=== PATIENT | male | born 1980 | race Caucasian/White ===

== ENCOUNTER 2024-04-26 08:49 | Emergency (ER) | payer OTHER, SELFPAY ==
--- NOTE | 2024-04-26 08:54 | ED_ITS ---
HPI - URI/Sore Throat General Chief Complaint: Upper Respiratory Infection Stated Complaint: family has flu Time Seen by Provider: 04/26/24 09:08 Source: patient and RN notes reviewed Mode of arrival: ambulatory Limitations: no limitations History of Present Illness HPI Narrative: 43-year-old male presents to the [facility] with vague symptoms of cough, congestion that started on Thursday or Thursday. Reports that he was exposed to influenza. Reports he took an ibuprofen and 1 Sudafed today. Related Data Home Medications ?Medication ?Instructions ?Recorded ?Confirmed ?Last Taken ?Type No Home Medications 04/26/24 04/26/24 Unknown History Allergies Allergy/AdvReac Type Severity Reaction Status Date / Time No Known Allergies Allergy Verified 04/26/24 09:10 Review of Systems Review of Systems: All systems reviewed & are unremarkable except as noted in HPI and below Constitutional: Constitutional: Reports as per HPI, Reports body ache(s) and Reports fatigue ENT: Reports system reviewed and no additional complaints, except as documented Cardiovascular: Cardiovascular: Reports no additional cardiovascular complaints, Denies chest pain and Denies dyspnea Respiratory: Respiratory: Reports as per HPI, Denies chest congestion, Reports cough and Denies dyspnea Musculoskeletal: Musculoskeletal: Reports no additional musculoskeletal complaints Integumentary/Breasts: Skin/Breast: Reports system reviewed and no additional complaints, except as docu PMFSH Comments At the time of my signature, I reviewed and agree with the nursing past medical, surgical, social, and family history. There is no relevant family history pertinent to the patient complaint. Exam Const: General: cooperative, healthy appearing, comfortable, no acute distress, well developed, alert and well nourished Nutritional Appearance: well nourished Orientation/consciousness: patient oriented x3 Limitations: no limitations HENMT: Head: normal to inspection Ears: hearing grossly normal bilaterally, external ears normal, TM's normal bilaterally, mastoids normal, no periauricular adenopathy and Abnormal EAC present Mouth: Yes Normal oral and palatal mucosa present, Yes lip normal, Yes tongue normal and Yes moist mucous membranes Throat: posterior oropharynx normal, uvula midline and no uvular edema Eyes: General: appearance normal, both eyes and all related structures Alignment and Position: alignment normal Neck: Neck: normal visual inspection, full ROM, no lymphadenopathy and no meningeal signs Chest: Chest palpation & inspection: normal inspection of the chest Resp: Effort & Inspection: normal respiratory effort and able to speak in complete sentences Auscultation: clear to auscultation bilaterally, no crackles, no rales, no rhonchi and no wheezes Cardio: Rate: regular rate Skin: General skin exam: normal color and no rashes or lesions noted Neuro: General: patient oriented x3, gait normal, moves all extremities and no meningeal signs Cognition (Neuro): normal cognition Speech: normal speech Gait exam (Neuro): Normal gait present Extrem: General: normal to inspection, full ROM, capillary refill normal and normal gait Psych: Appearance: grossly normal and well kempt Mental Status: mental status grossly normal Speech and movement: Normal speech and movement present and Clear speech present Affect: normal affect Attitude: cooperative Course Course Level of Care: Express Care Visit Vital Signs Vital signs: Vital Signs Temperature 98.1 F 04/26/24 09:00 Pulse Rate 84 04/26/24 09:00 Respiratory Rate 20 04/26/24 09:00 Blood Pressure 135/81 04/26/24 09:00 Pulse Oximetry 98 04/26/24 09:00 Oxygen Delivery Room Air 04/26/24 09:00 Temperature 98.1 F 04/26/24 09:00 Pulse Rate 84 04/26/24 09:00 Respiratory Rate 20 04/26/24 09:00 Blood Pressure 135/81 04/26/24 09:00 Pulse Oximetry 98 04/26/24 09:00 Oxygen Delivery Room Air 04/26/24 09:00 Reviewed MDM - URI/Sore Throat MDM Narrative Medical decision making narrative: Patient sitting in exam room. Nontoxic, vitals stable. Patient in no acute distress. Patient presents with concerns for influenza Test is negative, may tested too soon if symptoms started yesterday. Had been exposed to influenza. No acute findings noted on exam. Discharge instructions reviewed with patient, as well as provided in writing per nursing staff. The instructions also include specific and strict return/GO TO THE ER as well as f/u information. All questions have been answered, and the patient deny any further questions w ith discharge and discharge plan. Some parts of this dictation were generated by voice recognition software and may contain typographical and/or grammatical inaccuracies. Differential Diagnosis Differential diagnosis: Likely upper respiratory infection, sinusitis, viral infection, bronchitis, influenza and pharyngitis Lab Data Labs: Lab Results 04/26/24 Range/Units 09:00 POC Influenza A Ag Negative (Negative) POC Influenza B Ag Negative (Negative) POC SARS CoV-2 Ag Negative (Negative) Review Critical Care Time Critical Care Time Critical Care Time: No Discharge Plan Discharge Clinical Impression: Influenza-like illness Patient Disposition: Home, Self-Care Condition: Stable Instructions: Antibiotic Form, Influenza (DC) Additional Instructions: Your symptoms are likely due to a viral illness, which is not treated with antibiotics. Typically viral infections last 7-10 days, can linger for couple of weeks. It is very important to treat your symptoms. Drink plenty of water, Gatorade, Pedialyte, ice pops or Jell-O. -Alternate Tylenol and Motrin per package directions for fever or pain. You can alternate every 4 hours -Antihistamine medication such as Zyrtec/Claritin/Hermila during the day can help improve symptoms. -doing daily nasal irrigations can help relieve pressure your sinuses. Things like a Neti pot -Use Flonase twice a day for 5 days then daily to help reduce the inflammation and dry up your sinuses. -You can also use Mucinex. Be sure to drink plenty of water with this medication at least 8 ounces with every dose and it is important to drink 8 to 10 glasses of water per day. Water is a natural decongestant -Eat and drink things that are easy to swallow, like tea or soup, or popsicles. -Oral rinses such as: Salt water gargles and/or may use topical anesthetic (eg. Chloraseptic spray) or lozenges to relieve dryness or throat pain). -Frequent hand washing or hand cotton cleaner is one of the best ways to prevent spread of infection. -Using a vaporizer or humidifier at night will also help thin secretions and help with coughing up phlegm. -Follow up with primary care provider in 7-10 days if condition is not improving - For new or worsening symptoms go directly to the nearest ER Patient Language: [place] Prescriptions: No Action No Home Medications Follow-up/Referrals: PHYSICIAN NOT ON STAFF,NONSTAFF [Primary Care Provider] - Stand Alone Forms: Work/School Release IP Time of Disposition: 09:23
--- OUTSIDE RECORDS SUMMARY | 2024-04-26 08:58 | XMS_ITS | Patient Health Record ---
Author Organization [facility] Address [address] [address] Care Team Providers Care Pool Cleaner Name Role Phone Umair Chowdhury Primary Care Provider [phone] Allergies No Known Allergies Results Component Value Reference Range Notes LIPID PANEL (Not yet reviewe d by provider) Interpretation: Performing Lab:[facility] [place] [id number] Administration Josue Jordan [id number] KirstenGurwinder [facility] Notes/Report: FASTING:YES FASTING: YES CHOLESTEROL, TOTAL 137 <200 mg/dL HDL CHOLESTEROL 41 > OR = 40 mg/dL TRIGLYCERIDES 57 <150 mg/dL LDL-CHOLESTEROL 83 Reference range: <100 Desirable range <100 mg/dL for primary prevention; <70 mg/dL for patients with CHD or diabetic patients with > or = 2 CHD risk factors. LDL-C is now calculated using the Gt-Kelsy calculation, which is a validated novel method providing better accuracy than the Friedewald equation in the estimation of LDL-C. Gt WAGGONER et al. JUANI. 2013;310(19): 4289-5710 (http://education.Comviva.GogoCoin/faq/TJG212) CHOL/HDLC RATIO 3.3 <5.0 (calc) NON HDL CHOLESTEROL 96 <130 mg/dL (calc) For patients with diabetes plus 1 major ASCVD risk factor, treating to a non-HDL-C goal of <100 mg/dL (LDL-C of <70 mg/dL) is considered a therapeutic option. COMPREHENSIVE METABOLIC PANE L (Not yet reviewed by provider) Interpretation: Performing Lab:[facility] [place] [id number] Administration Josue Jordan [address] Notes/Report: FASTING:YES FASTING: YES GLUCOSE 93 65-99 mg/dL Fasting reference interval UREA NITROGEN (BUN) 15 7-25 mg/dL CREATININE 1.10 0.60-1.29 mg/dL EGFR 87 > OR = 60 mL/min/1.73m2 BUN/CREATININE RATIO SEE NOTE: 6-22 (calc) Not Reported: BUN and Creatinine are within reference range. SODIUM 136 135-146 mmol/L POTASSIUM 4.1 3.5-5.3 mmol/L CHLORIDE 103 98-110 mmol/L CARBON DIOXIDE 28 20-32 mmol/L CALCIUM 9.2 8.6-10.3 mg/dL PROTEIN, TOTAL 6.6 6.1-8.1 g/dL ALBUMIN 4.4 3.6-5.1 g/dL GLOBULIN 2.2 1.9-3.7 g/dL (calc) ALBUMIN/GLOBULIN RATIO 2.0 1.0-2.5 (calc) BILIRUBIN, TOTAL 0.5 0.2-1.2 mg/dL ALKALINE PHOSPHATASE 13 36-130 U/L AST 21 10-40 U/L ALT 14 9-46 U/L URIC ACID (Not yet reviewed by provider) Interpretation: Performing Lab:[facility]IL[facility] [employer] [place] [address] Administration Josue Jordan [address] Notes/Report: FASTING:YES FASTING: YES URIC ACID 5.1 4.0-8.0 mg/dL Therapeutic ta rget for gout patients: <6.0 mg/dL CBC (INCLUDES DIFF/PLT) (Not yet reviewed by provider) Interpretation: Performing Lab:[facility]IL[facility] [employer] [place] [address] Administration Josue Jordan [address] Notes/Report: FASTING:YES FASTING: YES WHITE BLOOD CELL COUNT 6.5 3.8-10.8 Thousand/ uL RED BLOOD CELL COUNT 5.21 4.20-5.80 Million/uL HEMOGLOBIN 15.5 13.2-17.1 g/dL HEMATOCRIT 47.4 38.5-50.0 % MCV 91.0 80.0-100.0 fL MCH 29.8 27.0-33.0 pg MCHC 32.7 32.0-36.0 g/dL RDW 12.4 11.0-15.0 % PLATELET COUNT 257 140-400 Thousand/uL MPV 10.3 7.5-12.5 fL ABSOLUTE NEUTROPHILS 3653 8235-2441 cells/uL ABSOLUTE LYMPHOCYTES 8752 206-5923 cells/uL ABSOLUTE MONOCYTES 702 200-950 cells/uL ABSOLUTE EOSINOPHILS 143 15-500 cells/uL ABSOLUTE BASOPHILS 39 0-200 cells/uL NEUTROPHILS 56.2 LYMPHOCYTES 30.2 MONOCYTES 10.8 EOSINOPHILS 2.2 BASOPHILS 0.6 URINALYSIS, COMPLETE W/REFLE X TO CULTURE (Not yet reviewed by provider) Interpretation: Performing Lab:AB[facility]IL[facility] [employer] [place] [address] Administration Josue Jordan [id number] [facility] Notes/Report: FASTING:YES FASTING: YES COLOR YELLOW YELLOW APPEARANCE CLEAR CLEAR SPECIFIC GRAVITY 1.022 1.001-1.035 PH 6.0 5.0-8.0 GLUCOSE NEGATIVE NEGATIVE BILIRUBIN NEGATIVE NEGATIVE KETONES NEGATIVE NEGATIVE OCCULT BLOOD NEGATIVE NEGATIVE PROTEIN NEGATIVE NEGATIVE NITRITE NEGATIVE NEGATIVE LEUKOCYTE ESTERASE NEGATIVE NEGATIVE WBC NONE SEEN < OR = 5 /HPF RBC NONE SEEN < OR = 2 /HPF SQUAMOUS EPITHELIAL CELLS NONE SEEN < OR = 5 /HPF BACTERIA NONE SEEN NONE SEEN /HPF HYALINE CAST NONE SEEN NONE SEEN /LPF NOTE This urine was analyzed for the presence of WBC, RBC, bacteria, casts, and other formed elements. Only those elements seen were reported. SED RATE BY MODIFIED AARON ANTONIO (Not yet reviewed by provider) Interpretation: Performing Lab:[facility]IL[facility] [employer] [place] [address] Administration Josue Jordan [id number] [facility] Notes/Report: FASTING:YES FASTING: YES SED RATE BY MODIFIED AARONREN 2 < OR = 15 mm/h HEMOGLOBIN A1c (Not yet revi ewed by provider) Interpretation: Performing Lab:[facility] [employer] [place] [address] Administration Josue Jordan [id number] [facility] Notes/Report: FASTING:YES FASTING: YES HEMOGLOBIN A1c 5.7 <5.7 % of total Hgb prediabetes and should be confirmed with a follow-up test. For someone with known diabetes, a value <7% indicates that their diabetes is well controlled. A1c targets should be individualized based on duration of diabetes, age, comorbid conditions, and other considerations. This assay result is consistent with an increased risk of diabetes. Currently, no consensus exists regarding use of hemoglobin A1c for diagnosis of diabetes for children. This test was performed on the Jeny fabien c503 platform. Effective 05/25/23, a change in test platforms from the [facility] [employer] to the Jeny fabien c503 may have shifted HbA1c results compared to historical results. Based on laboratory validation testing conducted at [facility], the Jeny platform relative to the [employer] platform had an average increase in HbA1c value of < or = 0.3%. This difference is within accepted variability established by the National Glycohemoglobin Standardization Program. Note that not all individuals will have had a shift in their results and direct comparisons between historical and current results for testing conducted on different platforms is not recommended. For someone without known diabetes, a hemoglobin A1c value between 5.7% and 6.4% is consistent with T4, FREE (Not yet reviewed b y provider) Interpretation: Performing Lab:[facility]IC[facility] [employer] [facility]-[id number] [place] [id number] Prema Squires MD Notes/Report: FASTING:YES FASTING: YES T4, FREE 1.1 0.8-1.8 ng/dL TSH (Not yet reviewed by pro vider) Interpretation: Performing Lab:[facility]IL[facility] [employer] [place] [address] Administration Josue Jordan [address] Camilla Squires Notes/Report: FASTING:YES FASTING: YES TSH 1.01 0.40-4.50 mIU/L T3, FREE (Not yet reviewed b y provider) Interpretation: Performing Lab:[facility] [employer] Limited-[id number] Chase [id number] Prema Squires MD Notes/Report: FASTING:YES FASTING: YES T3, FREE 3.4 2.3-4.2 pg/mL REFLEXIVE URINE CULTURE (Not yet reviewed by provider) Interpretation: Performing Lab:[facility] [employer] [place] [address] Administration Josue Jordan [address] Camilla Squires Notes/Report: FASTING:YES FASTING: YES REFLEXIVE URINE CULTURE NO C ULTURE INDICATED Reason For Referral No Information Medications Medication SIG (Take, Route, Fr equency, Duration) Notes Start Date End Date Status traMADol HCl 50 MG 1 tablet Orally Every 8 Hours for 17 days As needed 10/13/2023 Active Ibuprofen 200 MG 2-4 tablet with [...] Problem Status W/U Status Risk Notes Problem 94129983 Other chronic pa in (G89.29) Active confirmed Problem 468341966 Gastroesophageal reflux disease without esophagitis (K21.9) Active confirmed Problem 509188950657393 Right hand pain (M79.641) Active confirmed Problem 798190589925732 Left hand pain (M79.642) Active confirmed Problem 407903435768131 Left wrist pain (M25.532) Active confirmed Problem 156900105 Lumbar spondylos is (M47.816) Active confirmed Problem 808782453 Tobacco use disorder (F17.200) Active confirmed Problem 784838265192534 Right wrist pain (M25.531) Active confirmed Problem 666985038 Low back pain, unspecified (M54.50) Active confirmed Problem 69228510305258164 Injury of left forearm, sequela (S59.912S) Active confirmed Problem 00918828211577877 Right wrist tendonitis (M77.8) Active confirmed Problem 45970622488682474 Left wrist tendonitis (M77.8) Active confirmed Vital Signs Heart Rate 67 /min 10/13/2023 ple Temperature 98.6 degrees Fahrenheit 10/13/2023 ple Respiratory Rate 16 /min 10/13/2023 ple Oximetry 96 % 10/13/2023 ple Blood pressure diastolic 84 mm Hg 10/13/2023 ple Height 77 in 10/13/2023 ple Blood pressure systolic 122 mm Hg 10/13/2023 ple Weight 209 lbs 10/13/2023 ple BMI 24.78 kg/m2 10/13/2023 ple Encounters Encounter Location Date Provider Diagnosis [facility] [address] [address] 09/01/2023 Umair Chowdhury Low back pain, unspecified M54.50 ; Right hand pain M79.641 ; Right wrist pain M25.531 ; Left hand pain M79.642 ; Left wrist pain M25.532 ; Gastroesophageal reflux disease without esophagitis K21.9 ; Tobacco use disorder F17.200 and Other chronic pain G89.29 [facility] [address] [address] 09/15/2023 Umair Chowdhury Low back pain, unspecified M54.50 ; Gastroesophageal reflux disease without esophagitis K21.9 ; Tobacco use disorder F17.200 ; Injury of left forearm, sequela S59.912S ; Right wrist tendonitis M77.8 and Left wrist tendonitis M77.8 [facility] [address] [address] 10/13/2023 Umair Chowdhury Gastroesophageal ref lux disease without esophagitis K21.9 ; Tobacco use disorder F17.200 ; Low back pain, unspecified M54.50 ; Lumbar spondylosis M47.816 and Other chronic pain G89.29 [facility] [address] [address] 10/13/2023 Umair Chowdhury Low back pain, unspecified M54.50 Assessments Encounter Date Diagnosis (ICD Code) Assessment Notes Treatment Notes Treatment Clinical Notes Section Notes 09/01/2023 Right hand pain (ICD-10 - M79.641) 09/01/2023 Low back pain, unspecified (ICD-10 - M54.50) Back Pain: Care Instructions material was published to portal 09/15/2023 Low back pain, unspecified (ICD-10 - M54.50) 10/13/2023 Gastroesophageal reflux disease without esophagitis (ICD-10 - K21.9) 10/13/2023 Tobacco use disorder (ICD-10 - F17.200) Quitting Tobacco: Care Instructions material was published 10/13/2023 Low back pain, unspecified (ICD-10 - M54.50) 10/13/2023 Low back pain, unspecified (ICD-10 - M54.50) 09/01/2023 Right wrist pain (ICD-10 - M25.531) 09/15/2023 Gastroesophageal reflux disease without esophagitis (ICD-10 - K21.9) Gastroesophageal Reflux Disease (GERD): Care Instructions material was published 09/15/2023 Tobacco use disorder (ICD-10 - F17.200) 09/01/2023 Left hand pain (ICD-10 - M79.642) 10/13/2023 Lumbar spondylosis (ICD-10 - M47.816) 10/13/2023 Other chronic pain (ICD-10 - G89.29) 09/15/2023 Injury of left forearm, sequela (ICD-10 - S59.912S) 09/01/2023 Left wrist pain (ICD-10 - M25.532) 09/01/2023 Gastroesophageal reflux disease without esophagitis (ICD-10 - K21.9) 09/15/2023 Right wrist tendonitis (ICD-10 - M77.8) 09/15/2023 Left wrist tendonitis (ICD-10 - M77.8) 09/01/2023 Tobacco use disorder (ICD-10 - F17.200) 09/01/2023 Other chronic pain (ICD-10 - G89.29) Plan Of Treatment Pending Test Test Name Order Date LIPID PANEL 09/09/2023 COMPREHENSIVE METABOLIC PANEL 09/09/2023 URIC ACID 09/09/2023 CBC (INCLUDES DIFF/PLT) 09/09/2023 URINALYSIS, COMPLETE W/REFLEX TO CULTURE 09/09/2023 SED RATE BY BEENA SANDHU 09/09/19 24 HEMOGLOBIN A1c 09/09/2023 T4, FREE 09/09/2023 TSH 09/09/2023 T3, FREE 09/09/2023 REFLEXIVE URINE CULTURE 09/09/2023 Insurance Providers Payer Name Payer Address Payer Phone Subscriber Number Group Number Insured Name Patient Relationship to Insured Coverage Start Date Coverage End Date [employer] [facility] [address] [place] [address] [id number] BILL PABON Self - patient is the insured 4 Medical (General) History Surgical History Surgery Date(Month/Year)
--- OUTSIDE RECORDS SUMMARY | 2024-04-26 08:58 | XMS_ITS | Clinical Summary ---
Author Organization [facility] Care Team Providers Care Straightening Machine Feeder Name Role Phone Unavailable Primary Care Provider Unavailabl e Social History Tobacco Use Types Packs/Day Years Used Date Smoking Tobacco: Never Assessed Sex and Gender Information Value Date Recorded Sex Assigned at Not on file Legal Sex Male 12:46 PM ART HISTORIAN Gender Identity Not on file Sexual Orientation Not on file Plan of Treatment Health Maintenance Due Date Last Done Comments Hepatitis C Virus (HCV) Screening 1982 TdaP Immunization 1982 Hepatitis B Immunization (1 of 3 - 19+ 3-dose series) 2001 Influenza Immunization (#1) 2023 SARS-COV-2 Immunization ( - 2023- season) 2023 Respiratory Syncytial Virus (RSV) Immunization (Adult) (1 - 1-dose 75+ series) 2057 Meningococcal Immunization (ACWY) Aged Out No longer eligible based on patient's age to complete this topic Pneumococcal Immunization Combined Aged Out No longer eligible based on patient's age to complete this topic Rotavirus Immunization Aged Out No lo nger eligible based on patient's age to complete this topic
--- OUTSIDE RECORDS SUMMARY | 2024-04-26 08:58 | XMS_ITS ---
Author Organization [facility] Address [address] [address] Care Team Providers Care River Boat Captain Name Role Phone Umair Chowdhury Primary Care Provider [phone] Allergies No Known Allergies REASON FOR VISIT F/U Back pain - Pt requesting something for pain (Narcotics make pt nauseous) Medications Medication SIG (Take, Route, Fr equency, Duration) Notes Start Date End Date Status traMADol HCl 50 MG 1 tablet as needed O rally Once a day 10/13/2023 Active Ibuprofen 200 MG 2-4 tablet [...] Problem Status W/U Status Risk Notes Problem [id number] Lumbar spondylosis (M47.816) Active confirmed Vital Signs Temperature 98.6 degrees Fahrenheit 10/13/19 24 Blood pressure systolic 122 mm Hg 10/13/19 24 Blood pressure diastolic 84 mm Hg 024 Heart Rate 67 /min 10/13/2023 Respiratory Rate 16 /min 10/13/2023 Height 77 in 10/13/2023 Weight 209 lbs 10/13/2023 BMI 24.78 kg/m2 10/13/2023 Oximetry 96 % 10/13/2023 ple Encounters Encounter Location Date Provider Diagnosis [place] [address] [facility] [place] [address] 10/13/2023 Umair Chowdhury Gastroesophageal ref lux disease without esophagitis K21.9 ; Tobacco use disorder F17.200 ; Low back pain, unspecified M54.50 ; Lumbar spondylosis M47.816 and Other chronic pain G89.29 Assessments Encounter Date Diagnosis (ICD Code) Assessment Notes Treatment Notes Treatment Clinical Notes Section Notes 10/13/2023 Gastroesophageal reflux disease without esophagitis (ICD-10 - K21.9) 10/13/2023 Tobacco use disorder (ICD-10 - F17.200) Quitting Tobacco: Care Instructions material was published 10/13/2023 Low back pain, unspecified (ICD-10 - M54.50) 10/13/2023 Lumbar spondylosis (ICD-10 - M47.816) 10/13/2023 Other chronic pain (ICD-10 - G89.29) Plan Of Treatment Medication Medication Name Sig Start Date Stop Date Notes traMADol HCl 50 MG 1 tablet as needed Orally Once a day Treatment Notes Assessment Notes Tobacco use disorder Quitting Tobacco: C are Instructions material was published Progress Notes * BILL PABONDOB:[birth year] (43 yo M)Acc No.[id number]:10/13/2023 Progress Notes Patient: BILL MCCALLUM Provider: Ivett Chowdhury M.D. :1980 A ge:42 Y S ex:Male Date:10/13/2023 Address:[address] [place] [address] [address], [place] Subjective: * Chief Complaints: * 1 . F/U Back pain - Pt requesting something for pain (Narcotics make pt nauseous). * ROS: C onstitutional: No C onstit. [...] omiting . D enies D ysphagia . D enies R eflux/heartburn . D enies C hange [...] enies V aginal discharge . M usculoskeletal: Admits B ack pain . D enies J oint pain . D enies J oint swelling . D enies L imited range of motion . D enies M uscle aches.?Denies M uscle weakness . D enies S [...] leep disturbance . D enies S adness/tearfulness. H ematologic/lymphatic: No H em/Lymph Complaints . D enies B ruising . D enies B leeding tendencies . D enies L ymphadenopathy . D enies R ecurrent infections . A llergic/immunologic: No A ll/Imm Complaints . D enies E czema. D enies S easonal allergies . D enies U rticaria . E ndocrine: No E ndocrine Complaints . D enies P olydipsia .?Denies P olyphagia . D enies P olyuria . * Medical History: M edical History Verified. * Family History: F ather: unknown. M [...] as needed Orally every 6 hrs , Discontinued Acetaminophen 325 MG Tablet 2 tablet as needed Orally every 6 hrs , Medication List reviewed and reconciled with the patient * Allergies: N .K.D.A. Objective: * Vitals: T emp:98.6F, HR:67/min, BP:122/84mm Hg, Wt:209lbs, BMI:24.78Index, Ht: 77 in, RR:16/min, Oxygen sat %:96%, Peak Flow: RA, Ht-cm: 195.58 cm, Wt-k.8 kg. ple. * Examination: G eneral Examination: FUNCTIONAL [...] oriented x 3. Assessment: * Assessment: 1. G astroesophageal reflux disease without esophagitis - K21.9 (Primary) 2 .?Tobacco use disorder - F17.200 3 . L ow back pain, unspecified - M54.50 4 . L umbar spondylosis - M47.816 5 . O ther chronic pain - G89.29 Plan: * Treatment: 2. L ow back pain, unspecified Start traMADol HCl Tablet, 50 MG, 1 tablet as needed, Orally, Once a day. * Preventive Medicine: Counseling: C are goal follow-up plan: A becca Normal BMI Follow-up G iving encouragement to exercise, Lifestyle education regarding diet. * * Electronic signature of Kaleb Chowdhury MD on 04/26/2024 at 09:58 AM EST Sign off status: Pending * Provider: Ivett Chowdhury M.D. Date: 0 10/13/2023 Generated for Anna dill/Brina/Mariana on: 0 04/26/2024 09:58 AM EST History and Physical Notes * Examination Category Sub-Category Detail Notes Category Not es General Examination GENERAL APPEARANCE: in no ac bishop distress, well developed, well nourished HEAD: normocephalic, [...]
--- OUTSIDE RECORDS SUMMARY | 2024-04-26 08:58 | XMS_ITS | Referral Summary ---
Author Organization [facility] Address [address] [address] [employer] [place] [address] Care Team Providers Care Blow Molding Machine Operator Name Role Phone Umair Chowdhury MD Primary Care Provider Encounters Date Type Department Care Team Description 03/23/2024 7:00 AM FLAT HAMMERER Office Visit [facility] Hand Surgery [address] [place] [phone] Amado Salguero MD Chronic pain of both wrists (Primary Dx); Ganglion cyst of dorsum of right wrist 02/16/2024 Telephone [facility] [address] [place] [phone] Amado Salguero MD Results - Rt Wrist 02/15/2024 7:17 PM FLAT HAMMERER - 02/15/2024 11:59 PM FLAT HAMMERER Hospital Encounter [place] [address] [place] [address] Right wrist pain Discharge Disposition: Discharge to home or self care 02/10/2024 7:30 AM FLAT HAMMERER Office Visit [facility] Hand Surgery [address] [place] [phone] Amado Salguero MD Chronic pain of both wrists (Primary Dx); Right wrist pain 01/25/2024 Telephone [facility] Orthopedics and Sports Medicine [address] [place] [phone] Amado Salguero MD MRI denied from Last 3 Months Allergies No known active allergies Medications traMADoL (ULTRAM) 50 mg tablet TAKE 1 TABLET BY MOUTH EVERY 8 HOURS FOR 17 DAYS NEEDED 10/13/2023 Active Active Problems Problem Noted Date Diagnosed Date Ganglion cyst of dorsum of right wrist 5 Chronic pain of both wrists 10/12/2023 Immunizations Immunization Administration Dates Next Due Influenza, Unspecified 01/08/2020(Deferred: Jeana ent Refused) Tdap 04/12/2020(Deferred: Patient Ref used) Social History Tobacco Use Types Packs/Day Years Used Date Smoking Tobacco: Every Day Cigarettes Tobacco Cessation:Ready to Q uit: Not Asked; Counseling Given: Not Answered Alcohol Use Standard Drinks/Week Comments Not Currently 0 (1 standard drink = 0.6 oz pur e alcohol) PHQ-2 Answer Date Recorded PHQ-2 Total Score (If total score is 3 or more points, staff should administer the PHQ-9) 0 04/12/2020 Sex and Gender Information Value Date Recorded Sex Assigned at Not on file Legal Sex Male 1:50 PM FLAT HAMMERER Gender Identity Male 02/29/2024 4:27 PM FLAT HAMMERER Sexual Orientation Straight 02/29/2024 4: 27 PM FLAT HAMMERER Last Filed Vital Signs Vital Sign Reading Time Taken Comments Blood Pressure 124/76 01/21/2023 1:48 PM FLAT HAMMERER Pulse 69 01/21/2023 1:48 PM FLAT HAMMERER Temperature 35.6 C (96.1 F) 04/12/2020 1:48 PM FLAT HAMMERER Respiratory Rate 18 04/12/2020 1:48 PM FLAT HAMMERER Oxygen Saturation 98% 04/12/2020 1:48 PM FLAT HAMMERER Inhaled Oxygen Concentration - - Weight 93.4 kg (206 lb) 01/21/2023 1:48 PM FLAT HAMMERER Height 193 cm (6' 4 ) 01/21/2023 1:48 PM FLAT HAMMERER Body Mass Index 25.08 01/21/2023 1:48 PM FLAT HAMMERER Plan of Treatment Not on file Procedures Procedure Name Priority Date/Time Associated Diagnosis Comments US UPPER EXTREMITY RIGHT LIMITED Schedule Routine, Read Routine (OP Routine) 02/15/2024 7:33 PM FLAT HAMMERER Right wrist pain from Last 3 Months Results * US Upper Extremity Right Limited (02/15/2024 7:33 PM FLAT HAMMERER) Anatomical Region Laterality Modality Upper Extremities Right Ultrasound 02/24/2024 9:05 AM FLAT HAMMERER Narrative 02/24/2024 9:06 AM FLAT HAMMERER EXAM DESCRIPTION: US UPPER EXTREMITY RIGHT LIMITED REASON FOR STUDY: Wrist pain, palpable mass, neg xray TECHNIQUE: A Dynamic assessment was performed of the right wrist by the upsetter, with selected grayscale and color Doppler images acquired and recorded in PACS. COMPARISON: None. FINDINGS: There is no demonstrated mass, fluid collection, edema, or other abnormality. IMPRESSION: No demonstrated abnormality in the area of interest. THIS IS AN ELECTRONICALLY VERIFIED FINAL REPORT 02/24/2024 9:06 AM - Electronically signed by Faisal Hernandez M.D. T: Report ID: [id number] Reading Location: [id number] Procedure Note Faisal Hernandez Jr., MD - 02/24/2024 EXAM DESCRIPTION: US UPPER EXTREMITY RIGHT LIMITED REASON FOR STUDY: Wrist pain, palpable mass, neg xray TECHNIQUE: A Dynamic assessment was performed of the right wrist by the upsetter, with selected grayscale and color Doppler images acquired and recorded in PACS. COMPARISON: None. FINDINGS: There is no demonstrated mass, fluid collection, edema, or other abnormality. IMPRESSION: No demonstrated abnormality in the area of interest. THIS IS AN ELECTRONICALLY VERIFIED FINAL REPORT 02/24/2024 9:06 AM - Electronically signed by Faisal Hernandez M.D. T: Report ID: [id number] Reading Location: [id number] Amado Salguero MD [facility] US PROCEDURES Final Result from Last 3 Months Insurance [facility] [employer] Care Teams Blow Molding Machine Operator Relationship Specialty Start Date End Date Umair Chowdhury MD [address] [address] PCP - General Internal Medicine 09/09/23
--- OUTSIDE RECORDS SUMMARY | 2024-04-26 08:58 | XMS_ITS ---
Author Organization [facility] Address [address] [address] Care Team Providers Care Medical Assistant Prn Name Role Phone Umair Chowdhury Primary Care Provider Encounters Encounter Location Date Provider Diagnosis [address] [phone] 10/30/2023 Umair Chowdhury Plan Of Treatment No Information Progress Notes * BILL PABONDOB:[birth year] (43 yo M)Acc No.[id number]:10/30/2023 Progress Notes Patient: BILL MCCALLUM Provider: Ivett Chowdhury M.D. :1980 A ge:42 Y S ex:Male Date:10/30/2023 Address:[address] [facility] Subjective: * Chief Complaints: * * Medical History: Objective: * Vitals: Assessment: Plan: * Treatment: * * Electronic signature of Kaleb Chowdhury MD on 04/26/2024 at 09:58 AM EST Sign off status: Pending * Provider: Ivett Chowdhury M.D. Date: 10/30/2023 Generated for Anna dill/Brina/eTransmitting on: 0 04/26/2024 09:58 AM EST
--- OUTSIDE RECORDS SUMMARY | 2024-04-26 08:58 | XMS_ITS | Clinical Summary ---
Author Organization [facility] Address [address] [place] [address] Care Team Providers Care Multiple Sclerosis Nurse Name Role Phone None, Provider MD Primary Care Provider Unavaila ble Allergies No known active allergies Medications No known medications Active Problems No known active problems Family History Medical History Relation Comments cirrhosis liver Mother skin cancer Mother Relation Status Comments Mother Alive Social History Tobacco Use Types Packs/Day Years Used Date Smoking Tobacco: Every Day Cigarettes Smokeless Tobacco: Never Alcohol Use Standard Drinks/Week Comments Yes 0 (1 standard drink = 0.6 oz pur e alcohol) occassionally Sex and Gender Information Value Date Recorded Sex Assigned at Not on file Legal Sex Male 8:05 AM CDT Gender Identity Not on file Sexual Orientation Not on file Last Filed Vital Signs Vital Sign Reading Time Taken Comments Blood Pressure 158/110 01/19/2019 8:27 AM CUSTOMER OPERATIONS MANAGER Pulse 90 01/19/2019 8:27 AM CUSTOMER OPERATIONS MANAGER Temperature 36.5 C (97.7 F) 01/19/2019 8:27 AM CUSTOMER OPERATIONS MANAGER Respiratory Rate 18 01/19/2019 8:27 AM CUSTOMER OPERATIONS MANAGER Oxygen Saturation 99% 01/19/2019 8:27 AM CUSTOMER OPERATIONS MANAGER Inhaled Oxygen Concentration - - Weight 102.1 kg (225 lb) 01/19/2019 8:27 AM CUSTOMER OPERATIONS MANAGER Height 195.6 cm (6' 5 ) 01/19/2019 8:27 AM CUSTOMER OPERATIONS MANAGER Body Mass Index 26.68 01/19/2019 8:27 AM CUSTOMER OPERATIONS MANAGER Plan of Treatment Health Maintenance Due Date Last Done Comments Annual Physical 1985 Pneumococcal Vaccine: Pediat rics (0 to 5 Years) and At-Risk Patients (6 to 64 Years) (1 of 2 - PCV) 1988 Hepatitis C 2000 DTaP, Tdap and Td Vaccines ( 1 - Tdap) 2001 Hepatitis B Vaccines (1 of 3 - 19+ 3-dose series) 2001 COVID-19 Vaccine (2023-2 5 season) 2023 Influenza Adult (#1) 2023 HPV Vaccines Aged Out No longer eligi ble based on patient's age to complete this topic Meningococcal B Vaccine Aged Out No l onger eligible based on patient's age to complete this topic Meningococcal Vaccine Aged Out No tiago elise eligible based on patient's age to complete this topic RSV Immunizations Under 20 Months Aged Out No longer eligible based on patient's age to complete this topic Insurance [employer] Care Teams Multiple Sclerosis Nurse Relationship Specialty Start Date End Date None, Provider, PCP - General 05/24/18
--- OUTSIDE RECORDS SUMMARY | 2024-04-26 08:58 | XMS_ITS ---
Author Organization [facility] Address [facility] [address] Care Team Providers Care Data Communications Engineer Name Role Phone ChowdhuryJoe lombardobbir Primary Care Provider Medications Medication SIG (Take, Route, Fr equency, Duration) Notes Start Date End Date Status traMADol HCl 50 MG 1 tablet Orally Every 8 Hours for 17 days As needed 10/13/2023 Active Encounters Encounter Location Date Provider Diagnosis [address] [address] 10/13/2023 Umair Chowdhury Low back pain, unspecified M54.50 Assessments Encounter Date Diagnosis (ICD Code) Assessment Notes Treatment Notes Treatment Clinical Notes Section Notes 10/13/2023 Low back pain, unspecified (ICD-10 - M54.50) Plan Of Treatment Medication Medication Name Sig Start Date Stop Date Notes traMADol HCl 50 MG 1 tablet Orally Ever y 8 Hours for 17 days 10/13/2023 Progress Notes * BILL PABONDOB:[birth year] (42 yo M)Acc No.[id number]:10/13/2023 Patient: BILL MCCALLUM :1980 A ge:42 Y S ex:Male Address:[address] [place], [address] * Refills Refill traMADol HCl Tablet, 50 MG, Orally, 51 Tablet, 1 tablet, Every 8 Hours, 17 days, Refills=0 * true * Date: Generated for Anna dill/Brina/eTransmitting on: 0 04/26/2024 09:58 AM EST
--- OUTSIDE RECORDS SUMMARY | 2024-04-26 08:59 | XMS_ITS | Clinical Summary ---
Author Organization [facility] Address [address] [place] [address] Care Team Providers Care Steam Hand Name Role Phone Umair Chowdhury MD Primary Care Provider Allergies No known active allergies Medications traMADoL (ULTRAM) 50 mg tablet TAKE 1 TABLET BY MOUTH EVERY 8 HOURS FOR 17 DAYS NEEDED 10/13/2023 Active Active Problems Problem Noted Date Diagnosed Date Ganglion cyst of dorsum of right wrist Chronic pain of both wrists 10/12/2023 Encounters Date Type Department Care Team Description 03/23/2024 7:00 AM COMBINER OPERATOR Office Visit [facility] Hand Surgery [address] [place] [phone] Amado Salguero MD Chronic pain of both wrists (Primary Dx); Ganglion cyst of dorsum of right wrist 02/16/2024 Telephone [facility] Hand Surgery [address] [place] [phone] Amado Salguero MD Results - Rt Wrist 02/15/2024 7:17 PM COMBINER OPERATOR - 02/15/2024 11:59 PM COMBINER OPERATOR Hospital Encounter [facility] [address] [place] [address] Right wrist pain Discharge Disposition: Discharge to home or self care 02/10/2024 7:30 AM COMBINER OPERATOR Office Visit [facility] Hand Surgery [address] [place] [phone] Amado Salguero MD Chronic pain of both wrists (Primary Dx); Right wrist pain 01/25/2024 Telephone [facility] and [facility] Medicine [address] [place] [address] [address] [place] [address] Amado Salguero MD MRI denied from Last 3 Months Immunizations Immunization Administration Dates Next Due Influenza, Unspecified 01/08/2020(Deferred: Jeana ent Refused) Tdap 04/12/2020(Deferred: Patient Ref used) Medical History Medical History Date Comments Migraines Family History Medical History Relation Name Comments Heart attack Father Arthritis Other Cancer Other Kidney disease Other Relation Name Status Comments Father (Age late 50) Mother Alive Other Social History Tobacco Use Types Packs/Day Years [...] on file Legal Sex Male 1:50 PM COMBINER OPERATOR Gender Identity Male 02/29/2024 4:27 PM COMBINER OPERATOR Sexual Orientation Straight 02/29/2024 4: 27 PM COMBINER OPERATOR Obstetrics History Last Filed Vital Signs Vital Sign Reading Time Taken Comments Blood Pressure 124/76 01/21/2023 1:48 PM COMBINER OPERATOR Pulse 69 01/21/2023 1:48 PM COMBINER OPERATOR Temperature 35.6 C (96.1 F) 04/12/2020 1:48 PM COMBINER OPERATOR Respiratory Rate 18 04/12/2020 1:48 PM COMBINER OPERATOR Oxygen Saturation 98% 04/12/2020 1:48 PM COMBINER OPERATOR Inhaled Oxygen Concentration - - Weight 93.4 kg (206 lb) 01/21/2023 1:48 PM COMBINER OPERATOR Height 193 cm (6' 4 ) 01/21/2023 1:48 PM COMBINER OPERATOR Body Mass Index 25.08 01/21/2023 1:48 PM COMBINER OPERATOR Plan of Treatment Health Maintenance Due Date Last Done Comments Hepatitis C Screening 1980 Varicella Vaccines (1 of 2 - 13+ 2-dose series) 11/06/1995 Hepatitis B Screening 2000 Pneumococcal vaccine <65 (1 of 2 - PCV) 2001 Depression Screening 04/12/2021 04/12/2020 Regular Well Visit/Exam 18-64 04/12/2021 04/12/2020 DTaP/Tdap/Td Vaccine (2 - Td or Tdap) 01/11/2023 01/11/2013 Influenza Vaccine (#1) 2023 3, 12/27/2021, 11/19/2020, Additional history exists HPV Vaccines Aged Out No longer eligi ble based on patient's age to complete this topic Procedures Procedure Name Priority Date/Time Associated Diagnosis Comments US UPPER EXTREMITY RIGHT LIMITED Schedule Routine, Read Routine (OP Routine) 02/15/2024 7:33 PM COMBINER OPERATOR Right wrist pain from Last 3 Months Results * US Upper Extremity Right Limited (02/15/2024 7:33 PM COMBINER OPERATOR) Anatomical Region Laterality Modality Upper Extremities Right Ultrasound 02/24/2024 9:05 AM COMBINER OPERATOR Narrative 02/24/2024 9:06 AM COMBINER OPERATOR EXAM DESCRIPTION: US UPPER EXTREMITY RIGHT LIMITED REASON FOR STUDY: Wrist pain, palpable mass, neg xray TECHNIQUE: A Dynamic assessment was performed of the right wrist by the manager study, with selected grayscale and color Doppler images acquired and recorded in PACS. COMPARISON: None. FINDINGS: There is no demonstrated mass, fluid collection, edema, or other abnormality. IMPRESSION: No demonstrated abnormality in the area of interest. THIS IS AN ELECTRONICALLY VERIFIED FINAL REPORT 02/24/2024 9:06 AM - Electronically signed by Faisal Hernandez M.D. T: Report ID: [id number] Reading Location: [id number] Procedure Note Faisal Hernandez Jr., MD - 02/24/2024 EXAM DESCRIPTION: US UPPER EXTREMITY RIGHT LIMITED REASON FOR STUDY: Wrist pain, palpable mass, neg xray TECHNIQUE: A Dynamic assessment was performed of the right wrist by the manager study, with selected grayscale and color Doppler images acquired and recorded in PACS. COMPARISON: None. FINDINGS: There is no demonstrated mass, fluid collection, edema, or other abnormality. IMPRESSION: No demonstrated abnormality in the area of interest. THIS IS AN ELECTRONICALLY VERIFIED FINAL REPORT 02/24/2024 9:06 AM - Electronically signed by Faisal Hernandez M.D. T: Report ID: [id number] Reading Location: [id number] Amado Salguero MD IMG US PROCEDURES Final Result from Last 3 Months Insurance [facility] CIG [facility] Care Teams Steam Hand Relationship Specialty Start Date End Date Umair Chowdhury MD [address] [address] PCP - General Internal Medicine 09/09/23
--- OUTSIDE RECORDS SUMMARY | 2024-04-26 08:59 | XMS_ITS | Referral Summary ---
Author Organization [facility] Address [address] [place] [address] Care Team Providers Care Hematology Specialist Name Role Phone Unavailable Primary Care Provider Unavailabl e Social History Tobacco Use Types Packs/Day Years Used Date Smoking Tobacco: Never Assessed Sex and Gender Information Value Date Recorded Sex Assigned at Not on file Legal Sex Male 8:33 AM PST Gender Identity Not on file Sexual Orientation Not on file Plan of Treatment Not on file
--- OUTSIDE RECORDS SUMMARY | 2024-04-26 08:59 | XMS_ITS | Clinical Summary ---
Author Organization [facility] Address [address] [place] [address] Care Team Providers Care Evaluator Name Role Phone Unavailable Primary Care Provider [...]
--- OUTSIDE RECORDS SUMMARY | 2024-04-26 08:59 | XMS_ITS ---
Author Organization [facility] Address [address] [place] [address] Care Team Providers Care Air Intercept Controller Name Role Phone Unavailable Unavailable Unavailable Surgery Details Not on file Complications Check Surgery Details section. Procedure Estimated Blood Loss Check Surgery Details section. Procedure Findings Check Surgery Details section. Procedure Specimens Taken Check Surgery Details section.
--- OUTSIDE RECORDS SUMMARY | 2024-04-26 08:59 | XMS_ITS | CCD ---
Author Organization [facility] Address [address] [place] [address] Care Team Providers Care Fisheries Officer Name Role Phone Unavailable Primary Care Provider [...]
--- OUTSIDE RECORDS SUMMARY | 2024-04-26 08:59 | XMS_ITS | Continuity of Care Document ---
Author Organization [facility] Address [address] [address] Phone Care Team Providers Care Dietary Services Manager Name Role Phone Jeffry Gallego M.D. Unavailable [...] Diagnoses Date Provider Providers Copied on Encounter [facility], [address] [place] [address], [id number] , [place] tel: [phone] [email or web address] [place] [facility] No Information [address] [place], [address], [place]. tel:[phone] PREV VISIT, NEW, AGE 18-39 [facility], [address], [id number] , [place] tel: [phone] [email or web address] preventive exam (chief complaint)V asectomy consult (chief complaint) Neck painChronic midline low back pain without sciaticaVasectomy evaluationEncount er for annual general medical examination with abnormal findings in adult 8 No Information Family History Family Member Type Diagnosis Age At Onset Mother Problem (finding) migraine Mother Problem (finding) depression Mother Problem (finding) malignant neoplasm of s kin Payers Payer name Insurance type Covered libertarian ID Tello carlisle(s) [employer] Cap OCN CI [id number] Social History Type Description Quantity Date Captured [...] Future Order: Lab Order Hemoglob in A1c ([id number]), Sent on: Sent Future Order: Lab Order TSH ([id number]), S ent on: Sent Future Order: Lab Order CBC w/di ff ([id number]), Sent on: Sent Future Order: Lab Order Vitamin D, 25-Hydroxy ([id number]), Sent on: Sent Future Order: Lab Order Lipid Pa sharita ([id number]), Sent on: Sent Future Order: Lab Order CMP ([id number]), S ent on: Sent Future Order: Lab Order Hepatiti s Panel ([id number]), Sent on: Sent Future Order: Lab Order PSC HOLD ([id number]), Sent on: Sent History Of Present Illness Encounter Date Complaint History Of Prese nt Illness preventive exam Men's preventive visit. PMH: DeniesPSH: DeniesFH: Skin cancerMEDS: NoneALLERGY: NKDAC/O of chronin neck and low back pain Vasectomy consult Patient desire vasectomy Functional Status Date Functional Assessmen t No Information Instructions Date Instruction Additional Infor manoj Routine labs ordered Patient will schedule dental appointmentRTC 2 weeks to discuss results Related to Encounter for annual general medical examination with abnormal findings in adult Counseling doneUrolo gy referral ordered today Related to Vasectomy evaluation Neck x-ray orderedIb uprofen and Cyclobenzaprine ordered today Related to Neck pain Lumbo-sacral x-ray o rderedIbuprofen and Cyclobenzaprine ordered today Related to Chronic midline low back pain without sciatica Assessments Type Assessment Date No Information Patient Care Teams Name Effective Dates (start - stop) Status Members No Information
--- OUTSIDE RECORDS SUMMARY | 2024-04-26 08:59 | XMS_ITS | Encounter Summary ---
Author Organization [facility] Address [address] [place] [address] Care Team Providers Care Manager Applied Name Role Phone Unavailable Primary Care Provider Unavailabl e Prior Encounters Date Type Department Care Team Description 03/28/2019 Converted CPS Chart Documents [facility] [address], [place] [address] <No scans attached> 03/28/2019 Converted 13x Documents [facility] [address], [place] [address] <No scans attached> Plan of Treatment Not on file Procedures Procedure Name Priority Date/Time Associated Diagnosis Comments MISSED APPOINTMENT Routine 11/14/2014 12 :00 AM PDT UR PERIODONTAL SCALING AND ROOT PLANING - FOUR OR MORE TEETH PER QUADRANT Routine 10/11/2014 12:00 AM PDT UL PERIODONTAL SCALING AND ROOT PLANING - FOUR OR MORE TEETH PER QUADRANT Routine 10/11/2014 12:00 AM PDT LR PERIODONTAL SCALING AND ROOT PLANING - FOUR OR MORE TEETH PER QUADRANT Routine 10/11/2014 12:00 AM PDT LL PERIODONTAL SCALING AND ROOT PLANING - FOUR OR MORE TEETH PER QUADRANT Routine 10/11/2014 12:00 AM PDT ORAL HYGIENE INSTRUCTIONS Routine 2014 12:00 AM PDT COMPREHENSIVE ORAL EVALUATION - NEW OR ESTABLISHED PATIENT Routine 10/06/2014 12:00 AM PDT PANORAMIC RADIOGRAPHIC IMAGE Routine 10/06/2014 12:00 AM PDT INTRAORAL - COMPREHENSIVE SERIES OF RADIOGRAPHIC IMAGES Routine 10/06/2014 12:00 AM PDT INTRAORAL PHOTO Routine 10/06/2014 12:00 AM PDT INTRAORAL PHOTO Routine 10/06/2014 12:00 AM PDT INTRAORAL PHOTO Routine 10/06/2014 12:00 AM PDT INTRAORAL PHOTO Routine 10/06/2014 12:00 AM PDT Visit Diagnoses Not on file
[2024-04-26 09:00] VITALS: BP 135/81; PULSE 84; RESP 20; TEMP 36.7; O2SAT 98
[2024-04-26 09:18] LABS: EDCOVIDSCREEN Negative (Negative); EDINFLUASCREEN Negative (Negative); EDINFLUBSCREEN Negative (Negative)
== END 2024-04-26 09:25 | disposition home or self-care (01) ==
PROVIDERS: Emergency Provider Nurse Practitioner
DX: J11.1 Influenza due to unidentified influenza virus with other respiratory manifestations (principal); Z20.822 Contact with and (suspected) exposure to COVID-19
CPT/HCPCS: 87426; 87804; 99202; G0463

== ENCOUNTER 2025-01-16 18:59 | Emergency (ER) | payer SELFPAY ==
--- OUTSIDE RECORDS SUMMARY | 2018-05-18 08:56 | XMS_ITS | Continuity of Care Document ---
Author Organization [facility] Address [address] [address] Phone Care Team Providers Care Diamond Grader Name Role Phone Jeffry Gallego M.D. Unavailable Unavaila ble Allergies, Adverse Reactions, Alerts Substance Reaction Status Criticality No Known Allergies Active No Inform ation Medications Medication Instructions Dosage Effective Dates (start - stop) Status Comments ibuprofen 600 mg tablet take 1 tablet by oral route 3 times every day as needed with food 600 MG - Active cyclobenzaprine 5 mg tablet take 1 tablet by oral route QHS - Active Problems Condition Type Effective Dates (start - stop) Clini marisela Status Comments No Known Problems Procedures Procedure Date PREV VISIT, NEW, AGE 18-39 Advance Directives Directive Yes / No Effective Date File Name No Information Encounters Encounter Description Practice Location Reason(s) For Visit Diagnoses Date Provider Providers Copied on Encounter [facility], [address] [place] [address], [id number] , [place] tel: [phone] [employer] [place] [employer] No Information [address] [place], [address], [place]. tel:[phone] PREV VISIT, NEW, AGE 18-39 [facility], [address], [id number] , [place] tel: [phone] [employer] [facility] preventive exam (chief complaint)V asectomy consult (chief complaint) Neck painChronic midline low back pain without sciaticaVasectomy evaluationEncount er for annual general medical examination with abnormal findings in adult 8 No Information Family History Family Member Type Diagnosis Age At Onset Mother Problem (finding) migraine Mother Problem (finding) depression Mother Problem (finding) malignant neoplasm of s kin Payers Payer name Insurance type Covered republican ID Tello carlisle(s) [employer] Cap OCN CI [id number] Social History Type Description Quantity Date Captured Comments Sex Male Smoking Status No Information Chief Complaint And Reason For Visit No Information Reason For Referral Reason For Referral No Information Plan Of Treatment Date Type Action Status Goal PPD (TST). Due on 8 due Goal H&P. Due on due Goal Dentist Referral. Due on Apr due Referral Ordered: Referrals: Urology. Evaluate and treat Appointment date/timeframe: 10/07/2017 ordered Future Order: Lab Order Hemoglob in A1c ([id number]), Sent on: Sent Future Order: Lab Order TSH ([id number]), S ent on: Sent Future Order: Lab Order CBC w/di ff ([id number]), Sent on: Sent Future Order: Lab Order Vitamin D, 25-Hydroxy ([id number]), Sent on: Sent Future Order: Lab Order Lipid Pa sharita ([id number]), Sent on: Sent Future Order: Lab Order CMP ([id number]), S ent on: Sent Future Order: Lab Order Hepatiti s Panel ([id number]), Sent on: Sent Future Order: Lab Order PSC HOLD ([id number]), Sent on: Sent History Of Present Illness Encounter Date Complaint History Of Prese nt Illness preventive exam Men's preventive visit. PMH: DeniesPSH: DeniesFH: Skin cancerMEDS: NoneALLERGY: NKDAC/O of chronin neck and low back pain Vasectomy consult Patient desire vasectomy Functional Status Date Functional Assessmen t No Information Instructions Date Instruction Additional Infor manoj Counseling doneUrolo gy referral ordered today Related to Vasectomy evaluation Routine labs ordered Patient will schedule dental appointmentRTC 2 weeks to discuss results Related to Encounter for annual general medical examination with abnormal findings in adult Neck x-ray orderedIb uprofen and Cyclobenzaprine ordered today Related to Neck pain Lumbo-sacral x-ray o rderedIbuprofen and Cyclobenzaprine ordered today Related to Chronic midline low back pain without sciatica Assessments Type Assessment Date No Information Patient Care Teams Name Effective Dates (start - stop) Status Members No Information
--- OUTSIDE RECORDS SUMMARY | 2018-05-18 08:56 | XMS_ITS | Continuity of Care Document ---
Author Organization [employer] Address [address] [address] Phone Care Team Providers Care Licensed Insurance Agent Name Role Phone Jeffry Gallego M.D. Unavailable [...] Diagnoses Date Provider Providers Copied on Encounter [facility], [address] [place] [address], [id number] , [place] tel: [phone] [employer] No Information [address] [place], [address], [place]. tel:[phone] PREV VISIT, NEW, AGE 18-39 [facility], [address], [id number] , [place] tel: [phone] [employer] [facility] preventive exam (chief complaint)V asectomy consult (chief complaint) Neck painChronic midline low back pain without sciaticaVasectomy evaluationEncount er for annual general medical examination with abnormal findings in adult 8 No Information Family History Family Member Type Diagnosis Age At Onset Mother Problem (finding) migraine Mother Problem (finding) depression Mother Problem (finding) malignant neoplasm of s kin Payers Payer name Insurance type Covered democrat ID Tello carlisle(s) [employer] Cap OCN CI [id number] Social History Type Description Quantity Date Captured Comments Sex Male Smoking Status No Information Chief Complaint And Reason For Visit No Information Reason For Referral Reason For Referral No Information Plan Of Treatment Date Type Action Status Goal Dentist Referral. Due on Apr due Goal H&P. Due on due Goal PPD (TST). Due on 8 due Referral Ordered: Referrals: Urology. Evaluate and treat Appointment date/timeframe: 10/07/2017 ordered Future Order: Lab Order Hemoglob in A1c ([id number]), Sent on: Sent Future Order: Lab Order TSH ([id number]), S ent on: Sent Future Order: Lab Order CBC w/di ff ([id number]), Sent on: Sent Future Order: Lab Order Vitamin D, 25-Hydroxy ([id number]), Sent on: Sent Future Order: Lab Order Lipid Pa sharita ([id number]), Sent on: Sent Future Order: Lab Order CMP ([id number]), S ent on: Sent Future Order: Lab Order Hepatiti s Panel ([id number]), Sent on: Sent Future Order: Lab Order PSC HOLD ([id number]), Sent on: Sent History Of Present [...]
--- OUTSIDE RECORDS SUMMARY | 2023-09-01 07:45 | XMS_ITS ---
Author Organization [facility] Address [address] [address] Care Team Providers Care Examiner Of Currency Name Role Phone Umair Chowdhury Primary Care Provider Allergies No Known Allergies REASON FOR VISIT New Patient - c/o bilateral hand and wrist pain x 1 year, c/o back pain that has radiated to both shoulders and arms x 5 years, c/o heart burn x 1 year Medications Medication SIG (Take, Route, Fr equency, Duration) Notes Start Date End Date Status Acetaminophen 325 MG 2 tablet as needed Orally every 6 hrs Active Ibuprofen 200 MG 2-4 tablet with food or milk as needed Orally every 6 hrs Active Social History Tobacco Use: Social History Observation Description Date Details (start date - stop date) Current Smoker NA - NA Tobacco Use/Smoking Question Answer Notes Are you a current smoker How often do you smoke cigarettes? every day How many cigarettes a day do you smoke? 11-20 How soon after you wake up d o you smoke your first cigarette? 6-30 minutes Are you interested in quitting? Thinking about q uitting Alcohol Screen (Audit-C) Question Answer Notes Did you have a drink contain ing alcohol in the past year? Yes How often did you have a dri nk containing alcohol in the past year? 2 to 4 times a month (2 points) How many drinks did you have on a typical day when you were drinking in the past year? 1 or 2 drinks (0 point) How often did you have 6 or more drinks on one occasion in the past year? Never (0 point) Points 2 Interpretation Negative Tobacco use other than smoking: Question Answer Notes Are you an other tobacco user? Yes V ape occasionally Problems Problem Type SNOMED Code ICD Code Onset Dates Problem Status W/U Status Risk Notes Problem Low back pain (548078592) Low back pain, unspecified (M54.50) Active confirmed Problem Chronic pain (15550390) Other chronic pain (G89.29) Active confirmed Problem Pain in limb (37054121) Right hand pain (M79.641) Active confirmed Problem Pain in wrist (19879278) Right wrist pain (M25.531) Active confirmed Problem Pain of left hand (906544966053930) Left hand pain (M79.642) Active confirmed Problem Pain in wrist (02728813) Left wrist pain (M25.532) Active confirmed Problem Gastroesophageal reflux disease without esophagitis (504331539) Gastroesophageal reflux disease without esophagitis (K21.9) Active confirmed Problem Tobacco use (556667577) Tobacco use disorder (F17.200) Active confirmed Vital Signs Temperature 98.8 degrees Fahrenheit 09/01/19 24 Blood pressure systolic 120 mm Hg 09/01/19 24 Blood pressure diastolic 68 mm Hg 024 Heart Rate 75 /min 09/01/2023 Respiratory Rate 16 /min 09/01/2023 Height 77 in 09/01/2023 Weight 217 lbs 09/01/2023 BMI 25.73 kg/m2 09/01/2023 Oximetry 95 % 09/01/2023 ple Encounters Encounter Location Date Provider Diagnosis [address] [address] 09/01/2023 Umair Chowdhury Low back pain, unspecified M54.50 ; Right hand pain M79.641 ; Right wrist pain M25.531 ; Left hand pain M79.642 ; Left wrist pain M25.532 ; Gastroesophageal reflux disease without esophagitis K21.9 ; Tobacco use disorder F17.200 and Other chronic pain G89.29 Assessments Encounter Date Diagnosis (ICD Code) Assessment Notes Treatment Notes Treatment Clinical Notes Section Notes 09/01/2023 Low back pain, unspecified (ICD-10 - M54.50) Back Pain: Care Instructions material was published to portal 09/01/2023 Right hand pain (ICD-10 - M79.641) 09/01/2023 Right wrist pain (ICD-10 - M25.531) 09/01/2023 Left hand pain (ICD-10 - M79.642) 09/01/2023 Left wrist pain (ICD-10 - M25.532) 09/01/2023 Gastroesophageal reflux disease without esophagitis (ICD-10 - K21.9) 09/01/2023 Tobacco use disorder (ICD-10 - F17.200) 09/01/2023 Other chronic pain (ICD-10 - G89.29) Plan Of Treatment Treatment Notes Assessment Notes Low back pain, unspecified Back Pain: Ca re Instructions material was published to portal Progress Notes * BILL PABONDOB:[birth year] (44 yo M)Acc No.[id number]:09/01/2023 Progress Notes Patient: BILL MCCALLUM Provider: Ivett Chowdhury M.D. :1980 A ge:42 Y S ex:Male Date:09/01/2023 Address:[address] [place] [address] Subjective: * Chief Complaints: * 1 . New Patient - c/o bilateral hand and wrist pain x 1 year. 2. C/o back pain that has radiated to both shoulders and arms x 5 years. 3. C/o heart burn x 1 year. * ROS: C onstitutional: No C onstit. Complaints . D enies A ppetites change . D enies E xcessive sweating . D enies F atigue . D enies F ever. D enies N ight sweats . D enies W eight gain. D enies W eight loss. E yes: No E ye complaints . D enies B lurred vision. D enies C orrective lenses. D enies D iplopia. D enies E ye irritation . D enies E ye pain . D enies S pots in vision . D enies V ision loss. ? E ars, nose, mouth, throat: No E NT complaints . D enies E ar pain . D enies H earing loss . D enies T innitus. D enies V ertigo. D enies F acial pain . D enies N jae discharge. D enies N jae obstruction . D enies N osebleeds. D enies P ostnasal drainage . D enies B leeding gums. D enies D ental pain . D enies M outh Lesions . D enies H oarseness. D enies S ore throat .? C ardiovascular: No C ardiovas. Complaints. D enies C hest pain .?Denies D ecr. exercise tolerance . D enies E xertional dyspnea . D enies O rthropnea. D enies P alpitations. D enies S yncope. D enies C laudication . Denies L eg ulcers . D enies P eripheral edema. R espiratory: No R espiratory Complaints . D enies C ough . D enies S putum production . D enies H emoptysis . D enies S hortness of Breath .?Denies P leuritic pain . D enies W heezing . D enies S noring . D enies A pneas. G astrointestinal: No G I Complaints . D enies A bdominal pain . D enies B loating . D enies F ood intolerance . D enies N ausea. D enies V omiting . D enies D ysphagia . A dmits R eflux/heartburn . D enies C hange in bowel habits . D enies C onstipation . D enies D iarrhea . D enies B lack stools . D enies B loody stools. G enitourinary: No G U Complaints . D enies C hange in urinary stream . D enies D ysuria . D enies H ematuria . D enies I ncontinence . D enies N octuria . D enies U rinary frequency . D enies U rinary urgency . D enies D ysmenorrhea. D enies D yspareunia. D enies S exual dysfunction . D enies V aginal discharge . M usculoskeletal: Denies M usculo. Complaints . A dmits B ack pain .?Admits J oint pain , R t & Lt Hand pain, Rt & Lt Wrist pain .. D enies J oint swelling . D enies L imited range of motion . D enies M uscle aches. D enies M uscle weakness . D enies S tiffness . N eurologic: No N eurologic Complaints . D enies A bnormal gait . D enies F ocal weakness . D enies H eadache . D enies I ncoordination .?Denies M tony problems . D enies N umbness . D enies S eizures . D enies?Slurred Speech. P sychiatric: No P sychiatric Complaints . D enies A nxiety .?Denies D ecreased concentration . D enies I rritability . D enies P anic attacks . D enies S leep disturbance . D enies S adness/tearfulness. E ndocrine: No E ndocrine Complaints . D enies P olydipsia .?Denies P olyphagia . D enies P olyuria . A llergic/immunologic: No A ll/Imm Complaints . D enies E czema. D enies S easonal allergies . D enies U rticaria . H ematologic/lymphatic: No H em/Lymph Complaints . D enies B ruising . D enies B leeding tendencies . D enies L ymphadenopathy . D enies R ecurrent infections . * Medical History: M edical History Verified. * Surgical History: D enies Past Surgical History. * Hospitalization/Major Diagno stic Procedure: D enies Past Hospitalization. * Family History: F ather: unknown. M other: alive. 1 sister(s) - healthy. 3 son(s) , 1 daughter(s) - healthy. . Mother - Hepatitis, Melanoma, Arthritis Maternal Grandfather - Parkinson's Disease. * Social History: T obacco Use: T obacco Use/Smoking A re you a c urrent smoker, H ow often do you smoke cigarettes? e very day, H ow many cigarettes a day do you smoke? 1 1-20, H ow soon after you wake up do you smoke your first cigarette? 6 -30 minutes, A re you interested in quitting? T hinking about quitting. T obacco use other than smoking A re you an other tobacco user? Y es Vape occasionally. D rugs/Alcohol: D rugs H ave you used drugs other than those for medical reasons in the past 12 months??No. A lcohol Screen (Audit-C) D id you have a drink containing alcohol in the past year? Y es, H ow often did you have a drink containing alcohol in the past year? 2 to 4 times a month (2 points), H ow many drinks did you have on a typical day when you were drinking in the past year? 1 or 2 drinks (0 point), H ow often did you have 6 or more drinks on one occasion in the past year? N ever (0 point), P oints 2 , I nterpretation N egative. C affeine I ntake: 1 -2 cups per day. D o you smoke marijuana?: Admits. Do you drink alcohol?: Yes. * Medications: T aking Ibuprofen 200 MG Tablet 2-4 tablet with food or milk as needed Orally every 6 hrs , Taking Acetaminophen 325 MG Tablet 2 tablet as needed Orally every 6 hrs , Medication List reviewed and reconciled with the patient * Allergies: N .K.D.A. Objective: * Vitals: T emp:98.8F, HR:75/min, BP:120/68mm Hg, Wt:217lbs, BMI:25.73Index, Ht:77in, RR:16/min, Oxygen sat %:95%, Peak Flow:RA, Ht-cm:195.58cm, Wt-k.43kg. ple. * Examination: G eneral Examination: FUNCTIONAL STATUS A mbulatory . COGNITIVE STATUS A lert and oriented. GENERAL APPEARANCE: i n no acute distress, well developed, well nourished. NUTRITIONAL STATUS N ormal . ASSISTED DEVICES N one. HEAD: n ormocephalic, atraumatic. EYES: p upils equal, reactive to light and accommodation.? EARS: n ormal. ORAL CAVITY: m ucosa moist. THROAT: c lear. NECK/THYROID: n jama supple, full range of motion, no cervical lymphadenopathy. SKIN: w arm and dry. HEART: r egular rate and rhythm, S1, S2 normal. LUNGS: c lear to auscultation bilaterally. ABDOMEN: n ormal, bowel sounds present, soft, nontender, nondistended. EXTREMITIES: n o clubbing, cyanosis, or edema. NEUROLOGIC: n onfocal, cranial nerves 2-12 grossly intact, motor strength normal upper and lower extremities, sensory exam intact. PSYCH: a lert, oriented x 3. Assessment: * Assessment: 1. R ight hand pain - M79.641 2 . L ow back pain, unspecified - M54.50 (Primary) 3 . R ight wrist pain - M25.531 4 . L eft hand pain - M79.642 5 . L eft wrist pain - M25.532 6 . G astroesophageal reflux disease without esophagitis - K21.9 7 . T obacco use disorder - F17.200? 8. O ther chronic pain - G89.29 Plan: * Treatment: * Preventive Medicine: Counseling: C are goal follow-up plan: A becca Normal BMI Follow-up G iving encouragement to exercise, Lifestyle education regarding diet. * * Electronic signature of Kaleb Chowdhury MD on 01/16/2025 at 11:59 PM EST Sign off status: Pending * Provider: Ivett Chowdhury M.D. Date: 0 09/01/2023 Generated for Anna dill/Brina/eTransmitting on: 03/18/2024 11:59 PM EST History and Physical Notes * Examination Category Sub-Category Detail Notes Category Not es General Examination GENERAL APPEARANCE: in no ac tanana distress, well developed, well nourished HEAD: normocephalic, atrau matic EYES: pupils equal, reacti ve to light and accommodation EARS: normal THROAT: clear NECK/THYROID: neck supple, full ra nge of motion, no cervical lymphadenopathy HEART: regular rate and rhy thm, S1, S2 normal LUNGS: clear to auscultatio n bilaterally ABDOMEN: normal, bowel sounds present, soft, nontender, nondistended NEUROLOGIC: nonfocal, cranial ne rves 2-12 grossly intact, motor strength normal upper and lower extremities, sensory exam intact SKIN: warm and dry EXTREMITIES: no clubbing, cyanosi s, or edema PSYCH: alert, oriented x 3 ORAL CAVITY: mucosa moist FUNCTIONAL STATUS Ambulatory COGNITIVE STATUS Alert and oriented NUTRITIONAL STATUS Normal ASSISTED DEVICES None
--- OUTSIDE RECORDS SUMMARY | 2023-09-28 04:00 | XMS_ITS ---
Author Organization [facility] Address [address] [address] Care Team Providers Care Transformation Analyst Name Role Phone Umair Chowdhury Primary Care Provider Encounters Encounter Location Date Provider Diagnosis [address] [address] 09/28/2023 Umair Chowdhury Plan Of Treatment No Information Progress Notes * BILL PABONDOB:[birth year] (44 yo M)Acc No.[id number]:09/28/2023 Progress Notes Patient: BILL MCCALLUM Provider: Ivett Chowdhury M.D. :1980 A ge:42 Y S ex:Male Date:09/28/2023 Address[facility] [facility] Subjective: * Chief Complaints: * * Medical History: Objective: * Vitals: Assessment: Plan: * Treatment: * * Electronic signature of Kaleb Chowdhury MD on 01/16/2025 at 11:59 PM EST Sign off status: Pending * Provider: Ivett Chowdhury M.D. Date: 09/28/2023 Generated for Anna dill/Brina/eTransmitting on: 1 03/18/2024 11:59 PM EST
--- OUTSIDE RECORDS SUMMARY | 2023-10-08 04:15 | XMS_ITS ---
Author Organization [facility] Address [address] [address] Care Team Providers Care Stone Operator Name Role Phone Umair Chowdhury Primary Care Provider Encounters Encounter Location Date Provider Diagnosis [address] [address] 10/08/2023 Umair Chowdhury Plan Of Treatment No Information Progress Notes * BILL PABONDOB:[birth year] (44 yo M)Acc No.[id number]:10/08/2023 Progress Notes Patient: BILL MCCALLUM Provider: Ivett Chowdhury M.D. :1980 A ge:42 Y S ex:Male Date:10/08/2023 Address[facility] [facility] Subjective: * Chief Complaints: * * Medical History: Objective: * Vitals: Assessment: Plan: * Treatment: * * Electronic signature of Kaleb Chowdhury MD on 01/16/2025 at 11:59 PM EST Sign off status: Pending * Provider: Ivett Chowdhury M.D. Date: 0 10/08/2023 Generated for Anna dill/Brina/eTransmitting on: 1 03/18/2024 11:59 PM EST
--- OUTSIDE RECORDS SUMMARY | 2023-10-30 03:30 | XMS_ITS ---
Author Organization [facility] Address [address] [address] Care Team Providers Care Propellant Charge Loader Name Role Phone Umair Chowdhury Primary Care Provider [phone] Encounters Encounter Location Date Provider Diagnosis [address] [address] 10/30/2023 Umair Chowdhury Plan Of Treatment No Information Progress Notes * BILL PABONDOB:[birth year] (44 yo M)Acc No.[id number]:10/30/2023 Progress Notes Patient: BILL MCCALLUM Provider: Ivett Chowdhury M.D. :1980 A ge:42 Y S ex:Male Date:10/30/2023 Address:[address] [facility] Subjective: * Chief Complaints: * * Medical History: Objective: * Vitals: Assessment: Plan: * Treatment: * * Electronic signature of Kaleb Chowdhury MD on 01/17/2025 at 12:00 AM EST Sign off status: Pending * Provider: Ivett Chowdhury M.D. Date: 10/30/2023 Generated for Anna dill/Brina/eTransmitting on: 03/19/2024 12:00 AM EST
[2025-01-16 19:00] VITALS: BP 149/91; PULSE 86; RESP 16; TEMP 36.4; O2SAT 98
--- OUTSIDE RECORDS SUMMARY | 2025-01-16 19:01 | XMS_ITS | Clinical Summary ---
Author Organization [facility] Health Address [address] [place] [address] Care Team Providers Care Weight Loss Consultant Name Role Phone Unavailable Primary Care Provider [...]
--- OUTSIDE RECORDS SUMMARY | 2025-01-16 19:01 | XMS_ITS | Encounter Summary ---
Author Organization [facility] Health Address [address] [place] [address] Care Team Providers Care Animal Impersonator Name Role Phone Unavailable Primary Care Provider Unavailabl e Prior Encounters Date Type Department Care Team Description 03/28/2019 Converted CPS Chart Documents [facility] [address], [place] [address] <No scans attached> 03/28/2019 Converted 13x Documents [facility] [address], [place] [address] <No scans attached> Plan of [...]
--- OUTSIDE RECORDS SUMMARY | 2025-01-16 19:01 | XMS_ITS | Clinical Summary ---
Author Organization [facility] Address [facility] [place] [address] Care Team Providers Care Senior Consumer Insights Consultant Name Role Phone None, Provider MD Primary [...] Comments Blood Pressure 158/110 01/19/2019 8:27 AM PAVING BLOCK CUTTER Pulse 90 01/19/2019 8:27 AM PAVING BLOCK CUTTER Temperature 36.5 C (97.7 F) 01/19/2019 8:27 AM PAVING BLOCK CUTTER Respiratory Rate 18 01/19/2019 8:27 AM PAVING BLOCK CUTTER Oxygen Saturation 99% 01/19/2019 8:27 AM PAVING BLOCK CUTTER Inhaled Oxygen Concentration - - Weight 102.1 kg (225 lb) 01/19/2019 8:27 AM PAVING BLOCK CUTTER Height 195.6 cm (6' 5) 01/19/2019 8:27 AM PAVING BLOCK CUTTER Body Mass Index 26.68 01/19/2019 8:27 AM PAVING BLOCK CUTTER Plan of Treatment Health Maintenance Due Date Last Done Comments Annual Physical 1985 Hepatitis C 2000 DTaP, Tdap and Td Vaccines ( 1 - Tdap) 2001 Hepatitis B Vaccines (1 of 3 - 19+ 3-dose series) 2001 Pneumococcal Vaccine: Pediat rics (0 to 5 Years) and At-Risk Patients (6 to 49 Years) (1 of 2 - PCV) 2001 HPV Vaccines (1 - 3-dose SCD M series) 2009 COVID-19 Vaccine (2024-2 6 season) 2024 Influenza Adult (#1) 2024 Hepatitis A Vaccines Aged Out No long er eligible based on patient's age to complete [...] complete this topic Insurance [employer] Care Teams Senior Consumer Insights Consultant Relationship Specialty Start Date End Date None, Provider, PCP - General 05/24/18
--- OUTSIDE RECORDS SUMMARY | 2025-01-16 19:01 | XMS_ITS | Clinical Summary ---
Author Organization [facility] Care Team Providers Care Surveillance Analyst Name Role Phone Unavailable Primary Care Provider Unavailabl e Social History Tobacco Use Types Packs/Day Years Used Date Smoking Tobacco: Never Assessed Sex and Gender Information Value Date Recorded Sex Assigned at Not on file Legal Sex Male 12:46 PM INSTANT POTATO PROCESSOR Gender Identity Not on file Sexual Orientation Not on file Plan of Treatment Health Maintenance Due Date Last Done Comments Hepatitis C Virus (HCV) Screening 1982 TdaP Immunization 1982 Hepatitis B Immunization (1 of 3 - 19+ 3-dose series) 2001 Human Papillomavirus (HPV) Immunization (1 - 3-dose SCDM series) 2009 Influenza Immunization (#1) 2024 SARS-COV-2 Immunization ( season) 2024 Respiratory Syncytial Virus (RSV) Immunization (Adult) (1 [...]
--- OUTSIDE RECORDS SUMMARY | 2025-01-16 19:01 | XMS_ITS | Clinical Summary ---
Author Organization [facility] Address [address] [place] [phone] Care Team Providers Care Loan Analyst Name Role Phone Umair Chowdhury MD Primary Care Provider [phone] Allergies No known active allergies Medications traMADoL (ULTRAM) 50 mg tablet TAKE 1 TABLET BY MOUTH EVERY 8 HOURS FOR 17 DAYS NEEDED 10/13/2023 Active Active Problems Problem Noted Date Diagnosed Date Ganglion cyst of dorsum of right wrist Chronic pain of both wrists 10/12/2023 Immunizations [...] on file Legal Sex Male 1:50 PM SHELL SORTER Gender Identity Male 02/29/2024 4:27 PM SHELL SORTER Sexual Orientation Straight 02/29/2024 4: 27 PM SHELL SORTER Last Filed Vital Signs Vital Sign Reading Time Taken Comments Blood Pressure 124/76 01/21/2023 1:48 PM SHELL SORTER Pulse 69 01/21/2023 1:48 PM SHELL SORTER Temperature 35.6 C (96.1 F) 04/12/2020 1:48 PM SHELL SORTER Respiratory Rate 18 04/12/2020 1:48 PM SHELL SORTER Oxygen Saturation 98% 04/12/2020 1:48 PM SHELL SORTER Inhaled Oxygen Concentration - - Weight 93.4 kg (205 lb 14.6 oz) 025 11:28 AM CDT Height 193 cm (6' 4) 06/01/2024 11:28 AM CDT Body Mass Index 25.06 06/01/2024 11:28 AM CDT Plan of Treatment Health Maintenance Due Date Last Done Comments Hepatitis C Screening 1982 Varicella Vaccines (1 of 2 - 13+ 2-dose series) 11/06/1995 Hepatitis B Screening 2000 Pneumococcal vaccine <65 (1 of 2 - PCV) 2001 HPV Vaccines (1 - 3-dose SCD M series) 2009 Depression Screening 04/12/2021 04/12/2020 Regular Well Visit/Exam 18-64 04/12/2021 04/12/2020 DTaP/Tdap/Td Vaccine (2 - Td or Tdap) 01/11/2023 01/11/2013 Influenza Vaccine (#1) 2024 3, 12/27/2021, 11/19/2020, Additional history exists Insurance [facility] CIGNA [facility] Care Teams Loan Analyst Relationship Specialty Start Date End Date Umair Chowdhury MD [address] [address] PCP - General Internal Medicine 09/09/23
--- NOTE | 2025-01-16 21:30 | PC.NURSE ---
Pt named called @2128 with no answer
--- OUTSIDE RECORDS SUMMARY | 2025-01-16 23:00 | XMS_ITS | Encounter Summary ---
Author Organization [facility] Health Address [address] [place] [address] Care Team Providers Care Belt Dresser Name Role Phone Unavailable Primary Care Provider Unavailabl e Prior Encounters Date Type Department Care Team Description 03/28/2019 Converted CPS Chart Documents [facility] [address], [place] [address] <No scans attached> 03/28/2019 Converted 13x Documents [facility] [address], [place] [address] <No scans attached> Plan of [...]
--- OUTSIDE RECORDS SUMMARY | 2025-01-16 23:00 | XMS_ITS | Clinical Summary ---
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
--- OUTSIDE RECORDS SUMMARY | 2025-01-16 23:00 | XMS_ITS | Clinical Summary ---
Author Organization [facility] Address [facility] [place] [address] Care Team Providers Care Motor Vehicle Dispatcher Name Role Phone None, Provider MD Primary [...] Comments Blood Pressure 158/110 01/19/2019 8:27 AM EMULSION OPERATOR Pulse 90 01/19/2019 8:27 AM EMULSION OPERATOR Temperature 36.5 C (97.7 F) 01/19/2019 8:27 AM EMULSION OPERATOR Respiratory Rate 18 01/19/2019 8:27 AM EMULSION OPERATOR Oxygen Saturation 99% 01/19/2019 8:27 AM EMULSION OPERATOR Inhaled Oxygen Concentration - - Weight 102.1 kg (225 lb) 01/19/2019 8:27 AM EMULSION OPERATOR Height 195.6 cm (6' 5) 01/19/2019 8:27 AM EMULSION OPERATOR Body Mass Index 26.68 01/19/2019 8:27 AM EMULSION OPERATOR Plan of Treatment Health Maintenance Due [...] complete this topic Insurance [employer] Care Teams Motor Vehicle Dispatcher Relationship Specialty Start Date End Date None, Provider, PCP - General 05/24/18
--- OUTSIDE RECORDS SUMMARY | 2025-01-16 23:00 | XMS_ITS | Clinical Summary ---
Author Organization [facility] Health Address [address] [place] [address] Care Team Providers Care Cylindrical Mixer Name Role Phone Unavailable Primary Care Provider [...]
--- OUTSIDE RECORDS SUMMARY | 2025-01-16 23:00 | XMS_ITS | Clinical Summary ---
Author Organization [facility] Address [address] [place] [phone] Care Team Providers Care Programmer Analyst Health It Name Role Phone Umair Chowdhury MD Primary Care Provider [phone] Allergies No known active allergies Medications traMADoL [...] on file Legal Sex Male 1:50 PM BYPRODUCTS EXTRACTOR Gender Identity Male 02/29/2024 4:27 PM BYPRODUCTS EXTRACTOR Sexual Orientation Straight 02/29/2024 4: 27 PM BYPRODUCTS EXTRACTOR Last Filed Vital Signs Vital Sign Reading Time Taken Comments Blood Pressure 124/76 01/21/2023 1:48 PM BYPRODUCTS EXTRACTOR Pulse 69 01/21/2023 1:48 PM BYPRODUCTS EXTRACTOR Temperature 35.6 C (96.1 F) 04/12/2020 1:48 PM BYPRODUCTS EXTRACTOR Respiratory Rate 18 04/12/2020 1:48 PM BYPRODUCTS EXTRACTOR Oxygen Saturation 98% 04/12/2020 1:48 PM BYPRODUCTS EXTRACTOR Inhaled Oxygen Concentration - - Weight 93.4 [...] 3, 12/27/2021, 11/19/2020, Additional history exists Insurance [facility] CIGNA [facility] Care Teams Programmer Analyst Health It Relationship Specialty Start Date End Date Umair Chowdhury MD [address] [address] PCP - General Internal Medicine 09/09/23
--- OUTSIDE RECORDS SUMMARY | 2025-01-16 23:00 | XMS_ITS | Patient Health Record ---
Author Organization [facility] Address [address] [address] Care Team Providers Care Division Chair Name Role Phone Umair Chowdhury Primary Care Provider Allergies No Known Allergies Reason For Referral No Information Medications Medication SIG (Take, Route, Fr equency, Duration) Notes Start Date End Date Status traMADol HCl 50 MG 1 tablet Orally Every 8 Hours; Duration: 17 days As needed 10/13/2023 Active Ibuprofen [...] Problem Status W/U Status Risk Notes Problem Chronic pain (14550935) Other chronic pain (G89.29) Active confirmed Problem Gastroesophageal reflux disease without esophagitis (175106772) Gastroesophageal reflux disease without esophagitis (K21.9) Active confirmed Problem Pain in limb (68630366) Right hand pain (M79.641) Active confirmed Problem Pain of left hand (270950092964630) Left hand pain (M79.642) Active confirmed Problem Pain in wrist (40472976) Left wrist pain (M25.532) Active confirmed Problem Lumbar spondylosis (144183050) Lumbar spondylosis (M47.816) Active confirmed Problem Tobacco use (331609621) Tobacco use disorder (F17.200) Active confirmed Problem Pain in wrist (64984684) Right wrist pain (M25.531) Active confirmed Problem Low back pain (189186576) Low back pain, unspecified (M54.50) Active confirmed Problem Late effect of injury (28729396) Injury of left forearm, sequela (S59.912S) Active confirmed Problem Enthesopathy (87497364) Right wrist tendonitis (M77.8) Active confirmed Problem Enthesopathy (87512518) Left wrist tendonitis (M77.8) Active confirmed Plan Of Treatment Pending Test Test Name Order Date LIPID PANEL 09/09/2023 COMPREHENSIVE METABOLIC PANEL 09/09/2023 URIC ACID 09/09/2023 CBC (INCLUDES DIFF/PLT) 09/09/2023 URINALYSIS, COMPLETE W/REFLEX TO CULTURE 09/09/2023 SED RATE BY MODIFIED WESTERGREN 09/09/19 24 HEMOGLOBIN A1c 09/09/2023 T4, FREE 09/09/2023 TSH 09/09/2023 T3, FREE 09/09/2023 REFLEXIVE URINE CULTURE 09/09/2023 Insurance Providers Payer Name Payer Address Payer Phone Subscriber Number Group Number Insured Name Patient Relationship to Insured Coverage Start Date Coverage End Date [place] [employer] [address] [phone] [id number] BILL PABON Self - patient is the insured 4 Medical (General) History Surgical History Surgery Date(Month/Year)
== END 2025-01-16 19:10 | disposition left against medical advice (07) ==
DX: M54.32 Sciatica, left side (principal)
CPT/HCPCS: 99199

== ENCOUNTER 2025-01-16 20:52 | Emergency (ER) | payer OTHER, SELFPAY ==
--- NOTE | ~2025-01-16 | CT_ITS ---
CT lumbar spine wo con INDICATION: Low back pain COMPARISON: None available. TECHNIQUE: Axial images of the lumbar spine were obtained without contrast. Additional coronal and sagittal reformatted images were rendered. FINDINGS: Vertebral body height and alignment are maintained. No acute compression fracture or spondylolysis. Multilevel degenerative changes with disc bulging from L2-L3 through L5-S1. At L5-S1 there is disc protrusion to the left causing moderate narrowing of the left lateral recess and left paracentral disc space. IMPRESSION: No acute compression fracture or spondylolysis. Moderate degenerative changes with disc bulging particularly at L5-S1. All CT scans at this facility are performed using low dose modulation techniques as appropriate to perform exam including the following: automated exposure control; use of iterative reconstruction technique; adjustment of the mA and/or kV according to patient size (this includes techniques or standardized protocols for targeted exams where dose is matched to indication/reason for exam). Reviewed, dictated and finalized at location S. MEMBER IMPRESSION: No acute compression fracture or spondylolysis. Moderate degenerative changes with disc bulging particularly at L5-S1. All CT scans at this facility are performed using low dose modulation techniqu es as appropriate to perform exam including the following: automated exposure c ontrol; use of iterative reconstruction technique; adjustment of the mA and/or kV according to patient size (this includes techniques or standardized protocol s for targeted exams where dose is matched to indication/reason for exam).
[2025-01-16 20:52] VITALS: BP 132/92; PULSE 75; RESP 18; TEMP 36.1; O2SAT 100
--- NOTE | 2025-01-16 21:10 | ED_ITS ---
HPI - Back Pain/Injury General Chief Complaint: Back Pain/Injury Stated Complaint: back and sciatica nerve pain Time Seen by Provider: 01/16/25 21:10 Source: patient Mode of arrival: ambulatory Limitations: no limitations History of Present Illness HPI Narrative: 44 years old white male history of chronic lower back pain for over 10 years got worse over the last year and worsened over the last 4 weeks. Was seen at urgent care and was discharged on muscle relaxant and prednisone. Lately patient believe that left lower back pain got worse radiating to left lower extremity numbness and tingling including the left groin area. He denies bowel or bladder dysfunction . Patient report pain get worse sitting and laying down, better standing. He denies any recent trauma, fever, chills, nausea or vomiting. He denies any weakness of the leg or difficulty lifting the foot or toes, or difficulty with balance or coordination, Related Data Allergies Allergy/AdvReac Type Severity Reaction Status Date / Time No Known Allergies Allergy Verified 01/16/25 21:00 Review of Systems Review of Systems: All systems reviewed & are unremarkable except as noted in HPI and below Exam Narrative: General appearance: Well-developed, well-nourished Skin: Normal color Head: Normocephalic, nontraumatic Eyes: Clear conjunctiva ENT: Oropharynx normal, ears normal, nose normal Neck: Supple, nontender Chest and respiratory: Airway patent, no respiratory distress, no accessory muscle use Heart: Regular rate/rhythm Abdomen: Soft, nontender, no organomegaly, quiet bowel sounds Vascular: Normal peripheral pulses, normal capillary refill. Musculoskeletal: Diffuse tenderness across lumbar area, no bruises, no swelling or rash Neurologic: Alert and oriented ?3, positive straight leg raise test. Course Vital Signs Vital signs: Vital Signs Temperature 36.1 C L 01/16/25 20:52 Pulse Rate 75 01/16/25 20:52 Respiratory Rate 18 01/16/25 20:52 Blood Pressure 132/92 H 01/16/25 20:52 Pulse Oximetry 100 01/16/25 20:52 Oxygen Delivery Room Air 01/16/25 20:52 Temperature 36.1 C L 01/16/25 20:52 Pulse Rate 75 01/16/25 20:52 Respiratory Rate 18 01/16/25 20:52 Blood Pressure 132/92 H 01/16/25 20:52 Pulse Oximetry 100 01/16/25 20:52 Oxygen Delivery Room Air 01/16/25 20:52 MDM - Back Pain/Injury MDM Narrative Medical decision making narrative: History of chronic lower back pain for years, got worse over the last few weeks. Vital signs are stable Physical examination: Positive sciatica on the left lower extremity CT lumbar spine showed degenerative joint disease, bulging disc at L5-S1 Patient was able to get out of bed to go to the bathroom and back to the room without any sugar laboratory assistant, with steady gait, no limping or dragging his foot. In the ED patient received 10 mg of Decadron IV, 0.5 mg of Dilaudid IV and 4 mg of Zofran IV The pt was discharged to home.the pt,s condition upon discharge was fair,education was provided to the pt in reference to the final impression,discharge study results,treatment,prognosis and need for follow up . Differential Diagnosis Differential diagnosis: Likely other (As above) Imaging Data Radiologist's impression: Impressions Lumbar Spine CT 01/16/25 21:54 IMPRESSION: No acute compression fracture or spondylolysis. Moderate degenerative changes with disc bulging particularly at L5-S1. All CT scans at this facility are performed using low dose modulation techniques as appropriate to perform exam including the following: automated exposure control; use of iterative reconstruction technique; adjustment of the mA and/or kV according to patient size (this includes techniques or standardized protocols for targeted exams where dose is matched to indication/reason for exam). Critical Care Time Critical Care Time Critical Care Time: No Discharge Plan Discharge Clinical Impression: Sciatica of left side Patient Disposition: Home Condition: Improved Instructions: Lumbar Radiculopathy (ED) Additional Instructions: Return if symptoms are worsening , call your family physician for appointment, take Tylenol as as needed for aches and pain, continue home medications. Carry on with your normal activities as much as possible Try regular exercise for sciatica The started gentle exercise as soon as you can-anything that gets you moving can help Hold heat packs to the painful area-cecum by this from pharmacies Patient Language: Cape Verdean Prescriptions: New dexamethasone 4 mg tablet 4 mg PO Q8H Qty: 15 0RF Follow-up/Referrals: Tray Sylvester MD [Physician, Neurosurgery] - 01/17/25 UNKNOWN,DOCTOR [Non-Staff] Stand Alone Forms: Work/School Release IP
--- NOTE | 2025-01-16 21:13 | PC.NURSE ---
PT AMBULATORY TO BATHROOM WITH STEADY GAIT, BACK TO ED 2 STEADILY.
--- OUTSIDE RECORDS SUMMARY | 2025-01-16 21:22 | XMS_ITS | Encounter Summary ---
Author Organization [facility] Health Address [address] [place] [address] Care Team Providers Care Pre K Special Education Teacher Name Role Phone Unavailable Primary Care Provider Unavailabl e Prior Encounters Date Type Department Care Team Description 03/28/2019 Converted CPS Chart Documents [facility] [address], [place] [address] <No scans attached> 03/28/2019 Converted 13x Documents [facility] [address], [place] [address] <No scans attached> Plan of [...]
--- OUTSIDE RECORDS SUMMARY | 2025-01-16 21:22 | XMS_ITS | Clinical Summary ---
Author Organization [facility] Care Team Providers Care Radar Air Traffic Controller Name Role Phone Unavailable Primary Care Provider Unavailabl e Social History Tobacco Use Types Packs/Day Years Used Date Smoking Tobacco: Never Assessed Sex and Gender Information Value Date Recorded Sex Assigned at Not on file Legal Sex Male 12:46 PM CHIEF WARDEN Gender Identity Not on file Sexual Orientation [...]
--- OUTSIDE RECORDS SUMMARY | 2025-01-16 21:22 | XMS_ITS | Clinical Summary ---
Author Organization [facility] Health Address [address] [place] [address] Care Team Providers Care Fbi Sharpshooter Name Role Phone Unavailable Primary Care Provider [...]
--- OUTSIDE RECORDS SUMMARY | 2025-01-16 21:22 | XMS_ITS | Clinical Summary ---
Author Organization [facility] Address [address] [place] [address] Care Team Providers Care Provider Contracting Consultant Name Role Phone Umair Chowdhury MD Primary Care Provider [phone] Allergies No known active allergies Medications traMADoL [...] on file Legal Sex Male 1:50 PM CHECKER PRODUCT DESIGN Gender Identity Male 02/29/2024 4:27 PM CHECKER PRODUCT DESIGN Sexual Orientation Straight 02/29/2024 4: 27 PM CHECKER PRODUCT DESIGN Last Filed Vital Signs Vital Sign Reading Time Taken Comments Blood Pressure 124/76 01/21/2023 1:48 PM CHECKER PRODUCT DESIGN Pulse 69 01/21/2023 1:48 PM CHECKER PRODUCT DESIGN Temperature 35.6 C (96.1 F) 04/12/2020 1:48 PM CHECKER PRODUCT DESIGN Respiratory Rate 18 04/12/2020 1:48 PM CHECKER PRODUCT DESIGN Oxygen Saturation 98% 04/12/2020 1:48 PM CHECKER PRODUCT DESIGN Inhaled Oxygen Concentration - - Weight 93.4 [...] 3, 12/27/2021, 11/19/2020, Additional history exists Insurance [facility] CIGNA [facility] Care Teams Provider Contracting Consultant Relationship Specialty Start Date End Date Umair Chowdhury MD [address] [address] PCP - General Internal Medicine 09/09/23
--- OUTSIDE RECORDS SUMMARY | 2025-01-16 21:22 | XMS_ITS | Clinical Summary ---
Author Organization [facility] Address [facility] [place] [address] Care Team Providers Care Cro Name Role Phone None, Provider MD Primary [...] Comments Blood Pressure 158/110 01/19/2019 8:27 AM TEAM LEADER/RESEARCH PSYCHOLOGIST Pulse 90 01/19/2019 8:27 AM TEAM LEADER/RESEARCH PSYCHOLOGIST Temperature 36.5 C (97.7 F) 01/19/2019 8:27 AM TEAM LEADER/RESEARCH PSYCHOLOGIST Respiratory Rate 18 01/19/2019 8:27 AM TEAM LEADER/RESEARCH PSYCHOLOGIST Oxygen Saturation 99% 01/19/2019 8:27 AM TEAM LEADER/RESEARCH PSYCHOLOGIST Inhaled Oxygen Concentration - - Weight 102.1 kg (225 lb) 01/19/2019 8:27 AM TEAM LEADER/RESEARCH PSYCHOLOGIST Height 195.6 cm (6' 5) 01/19/2019 8:27 AM TEAM LEADER/RESEARCH PSYCHOLOGIST Body Mass Index 26.68 01/19/2019 8:27 AM TEAM LEADER/RESEARCH PSYCHOLOGIST Plan of Treatment Health Maintenance Due Date [...] complete this topic Insurance [employer] Care Teams Cro Relationship Specialty Start Date End Date None, Provider, PCP - General 05/24/18
[2025-01-16] MEDS: dexAMETHasone SOD PHOS INJ 10 MG/ML 1 ML VIAL IV PUSH (21:30)
[2025-01-16] MEDS: ONDANSETRON INJ 4 MG/2 ML VIAL IV PUSH (21:30)
[2025-01-16] MEDS: HYDROmorphone HCL INJ (*CRX) 2 MG/ML VIAL 0.5 MG IV PUSH (21:31)
--- NOTE | 2025-01-16 21:36 | PC.NURSE ---
IV STARTED PER ORDER, SEE MAR. PT MEDICATED. PT TOLERATED IV START POOR, BECOMING CLAMMY AND JUMPING WITH FIRST IV ATTEMPT. SIG OTHER AT BEDSIDE, PROVIDING REASSURANCE DURING IV START.
--- NOTE | 2025-01-16 21:48 | PC.NURSE ---
PT RETURNED FROM IMAGING VIA WHEELCHAIR PER CONSTRUCTION OPERATIONS MANAGER. SIG OTHER AT BEDSIDE.
[2025-01-16 22:14] VITALS: BP 126/76; PULSE 62; RESP 16; TEMP 36.1; O2SAT 98
[2025-01-16 22:22] VITALS: BP 118/76
== END 2025-01-16 22:22 | disposition home or self-care (01) ==
PROVIDERS: Emergency Provider Emergency Medicine; Referring Provider Internal Medicine
DX: M54.32 Sciatica, left side (principal)
CPT/HCPCS: 72131; 96374; 96375; 99284; J1100; J1171; J2405

== ENCOUNTER 2025-01-24 09:23 | Emergency (ER) | payer OTHER, SELFPAY ==
[2025-01-24 09:43] VITALS: BP 148/80; PULSE 86; RESP 18; TEMP 37; O2SAT 99
--- NOTE | 2025-01-24 09:50 | ED.URI ---
HPI - URI/Sore Throat General Chief Complaint: Upper Respiratory Infection Stated Complaint: Sore Throat Time Seen by Provider: 01/24/25 09:52 Source: patient, RN notes reviewed and old records reviewed Mode of arrival: ambulatory Limitations: no limitations History of Present Illness HPI Narrative: 44 year old male who presents to [facility] care with complaints of sore throat that started yesterday. Patient reports that several family members are being treated for strep throat at this time. He has taken Ibuprofen for his complaints. Patient reports that he has not had any known fevers. Patient reports that he noted white exudates to the back of the throat this morning. MD elicited complaint: sore throat Onset (ago): day(s) (since yesterday) Severity: mild Able to tolerate fluids by mouth: Yes Treatments prior to arrival: ibuprofen Related Data Allergies Allergy/AdvReac Type Severity Reaction Status Date / Time No Known Allergies Allergy Verified 01/24/25 09:49 Review of Systems Review of Systems: CONSTITUTIONAL: Denies malaise, chills, sweats, or fever. EYES: Denies visual changes, redness, or discharge. ENT: Reports rhinorrhea, congestion,no sinus pain, no otalgia and +sore throat. CARDIOVASCULAR: Denies chest pain, palpitations, or edema. RESPIRATORY: Reports no cough.? Denies dyspnea. GASTROINTESTINAL: Denies abdominal pain, nausea, vomiting, diarrhea SKIN: Denies rash or itching. MUSCULOSKELETAL: Denies myalgia. NEUROLOGIC: Denies headache. All systems reviewed & are unremarkable except as noted in HPI and below PMFSH Past Medical History Medical History Back pain with left-sided sciatica Bulging lumbar disc Social History Social History Smoking packs per day: 0.5 Smoking cigarettes per day: 10.0 Smoking status: Current every day smoker Tobacco type: cigarettes Alcohol intake: current Alcohol use details: social Substance use type: does not use Living arrangements: with family Gender identity (if verbalized by the patient): Male Comments At time of signature, agree with nursing past medical, surgical, social and family history. There is no relevant family history pertinent to the presenting complaint Exam Narrative: GENERAL: Well-appearing, well-nourished, and in no acute distress. HEAD: Normocephalic EYES: PERRLA, conjunctivae clear ENT: Nares clear, turbinates edematous and erythematous, clear discharge. Mucous membranes moist. TM pearly mohamud with dull light reflex bilaterally; no tragal tenderness. Oropharynx erythematous without lesions. Tonsils red enlarged and with white exudate, no drooling, no hoarseness, no trismus, uvula midline. NECK: Supple. No lymphadenopathy CHEST: Clear to auscultation, breath sounds equal. No wheezing, rhonchi, rales, or stridor. No respiratory distress, speaks in full sentences.no acute cough, SAO2 99% on room air HEART: Regular rate and rhythm. No murmur heard. SKIN: Warm, dry, no rash. NEURO: Alert and oriented x3. PSYCH: Normal mood and affect Course Course Emergency Course: Patient is aware of diagnosis, understands and agrees to treatment plan.? Anticipatory guidance given.? Patient agrees to follow-up as directed and is aware of reasons to seek care at the emergency department. Portions of this record may have been created with voice recognition software Level of Care: Express Care Visit Vital Signs Vital signs: Vital Signs Temperature 37.0 C 01/24/25 09:43 Pulse Rate 86 01/24/25 09:43 Respiratory Rate 18 01/24/25 09:43 Blood Pressure 148/80 H 01/24/25 09:43 Pulse Oximetry 99 01/24/25 09:43 Oxygen Delivery Room Air 01/24/25 09:43 Temperature 37.0 C 01/24/25 09:43 Pulse Rate 86 01/24/25 09:43 Respiratory Rate 18 01/24/25 09:43 Blood Pressure 148/80 H 01/24/25 09:43 Pulse Oximetry 99 01/24/25 09:43 Oxygen Delivery Room Air 01/24/25 09:43 Reviewed MDM - URI/Sore Throat MDM Narrative Medical decision making narrative: Differential diagnosis considered: Evans virus, strep pharyngitis, allergic rhinitis, upper respiratory tract infection, sinusitis, rhinosinusitis, nasopharyngitis. viral pharyngitis, otitis media, otitis externa, pneumonia, bronchitis, viral cough syndrome, viral syndrome, and influenza.? Exam findings show no acute concerns or changes; patient is non-toxic appearing and is in no distress.? Patient is appropriate for outpatient treatment and follow-up. Differential Diagnosis Differential diagnosis: Likely upper respiratory infection, viral infection, pharyngitis and other (strep pharyngitis, exudative tonsillitis) Medical Records Attestation: I reviewed the patient's medical records. Lab Data Attestation: I reviewed the patient's lab results. Lab results narrative: strep screen negative, culture sent Labs: Lab Results 01/24/25 Range/Units 09:56 POC Grp A Strep Screen Negative (Negative) Critical Care Time Critical Care Time Critical Care Time: No Discharge Plan Discharge Clinical Impression: Exposure to group A Streptococcus, Exudative pharyngitis Patient Disposition: Home Condition: Stable Instructions: Antibiotic Form, Tonsillitis (ED) Additional Instructions: . Take the entire course of antibiotics. Throw away your current toothbrush and begin using a new toothbrush in 48 hours in order to prevent re-infection. Sanitize all reusable water bottles . Do not share items with others. Salt water gargles may alleviate some of the throat discomfort. You can take Tylenol or ibuprofen per the package instructions for pain/fever. Your strep test today was negative. A throat culture will be sent to the laboratory for further testing. IF the test is positive, you will receive a phone call of results. if negative you can not stop the oral antibiotic if desire If your symptoms persist, change or worsen significantly before you can contact your personal physician then please, without delay, go to the emergency department for further evaluation. Follow-up with PCP in 7-10 days or sooner if needed Follow up with PCP soon in regards to your blood pressure which is elevated above threshold for referral. Blood pressure above 120/80 may indicate pre-hypertension.148/80 Patient Language: Upper Sorbian Prescriptions: New amoxicillin 500 mg capsule 500 mg PO Q12H Qty: 20 0RF Follow-up/Referrals: PHYSICIAN,RADIO EQUIPMENT INSTALLER [Primary Care Provider, Internal Medicine] Stand Alone Forms: Work/School Release IP Time of Disposition: 10:17 Quality Laura Coma Scale Eyes: Open Verbal: Oriented and Alert Motor: Follows Commands [place] Coma Total Score: 15
[2025-01-24 09:57] LABS: EDSTREPNEGPOS1 Negative (Negative)
== END 2025-01-24 10:24 | disposition home or self-care (01) ==
PROVIDERS: Emergency Provider Registered Nurse
DX: J02.9 Acute pharyngitis, unspecified (principal); Z20.818 Contact with and (suspected) exposure to other bacterial communicable diseases; F17.210 Nicotine dependence, cigarettes, uncomplicated
CPT/HCPCS: 87081; 87880; 99213; G0463

== ENCOUNTER 2025-02-07 09:54 | Emergency (ER) | payer OTHER, SELFPAY ==
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
[2025-02-07 10:00] VITALS: BP 132/86; PULSE 85; RESP 17; TEMP 36.6; O2SAT 100
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
--- OUTSIDE RECORDS SUMMARY | 2025-02-07 10:42 | XMS_ITS | Clinical Summary ---
Author Organization [facility] Health Address [address] [place] [address] Care Team Providers Care Structural Rigger Name Role Phone Unavailable Primary Care Provider [...]
--- OUTSIDE RECORDS SUMMARY | 2025-02-07 10:42 | XMS_ITS | Clinical Summary ---
Author Organization [facility] Care Team Providers Care Help Desk Supervisor Name Role Phone Unavailable Primary Care Provider Unavailabl e Social History Tobacco Use Types Packs/Day Years Used Date Smoking Tobacco: Never Assessed Sex and Gender Information Value Date Recorded Sex Assigned at Not on file Legal Sex Male 12:46 PM WEAVER NARROW FABRICS Gender Identity Not on file Sexual Orientation [...]
--- OUTSIDE RECORDS SUMMARY | 2025-02-07 10:42 | XMS_ITS | Clinical Summary ---
Author Organization [facility] Address [facility] [place] [facility] [place] [address] Care Team Providers Care Emt I/85 Name Role Phone None, Provider MD Primary [...] Comments Blood Pressure 158/110 01/19/2019 8:27 AM PRINCIPAL HARDWARE ARCHITECT Pulse 90 01/19/2019 8:27 AM PRINCIPAL HARDWARE ARCHITECT Temperature 36.5 C (97.7 F) 01/19/2019 8:27 AM PRINCIPAL HARDWARE ARCHITECT Respiratory Rate 18 01/19/2019 8:27 AM PRINCIPAL HARDWARE ARCHITECT Oxygen Saturation 99% 01/19/2019 8:27 AM PRINCIPAL HARDWARE ARCHITECT Inhaled Oxygen Concentration - - Weight 102.1 kg (225 lb) 01/19/2019 8:27 AM PRINCIPAL HARDWARE ARCHITECT Height 195.6 cm (6' 5) 01/19/2019 8:27 AM PRINCIPAL HARDWARE ARCHITECT Body Mass Index 26.68 01/19/2019 8:27 AM PRINCIPAL HARDWARE ARCHITECT Plan of Treatment Health Maintenance Due Date [...] complete this topic Insurance [employer] Care Teams Emt I/85 Relationship Specialty Start Date End Date None, Provider, PCP - General 05/24/18
--- OUTSIDE RECORDS SUMMARY | 2025-02-07 10:42 | XMS_ITS | Clinical Summary ---
Author Organization [facility] Address [address] [place] [id number] Care Team Providers Care Production Administrator Name Role Phone Umair Chowdhury MD Primary Care Provider [phone] Allergies No known active allergies Medications traMADoL [...] on file Legal Sex Male 1:50 PM RUBBER AND POUNDER Gender Identity Male 02/29/2024 4:27 PM RUBBER AND POUNDER Sexual Orientation Straight 02/29/2024 4: 27 PM RUBBER AND POUNDER Last Filed Vital Signs Vital Sign Reading Time Taken Comments Blood Pressure 124/76 01/21/2023 1:48 PM RUBBER AND POUNDER Pulse 69 01/21/2023 1:48 PM RUBBER AND POUNDER Temperature 35.6 C (96.1 F) 04/12/2020 1:48 PM RUBBER AND POUNDER Respiratory Rate 18 04/12/2020 1:48 PM RUBBER AND POUNDER Oxygen Saturation 98% 04/12/2020 1:48 PM RUBBER AND POUNDER Inhaled Oxygen Concentration - - Weight 93.4 [...] 3, 12/27/2021, 11/19/2020, Additional history exists Insurance [facility] CIGNA [facility] Care Teams Production Administrator Relationship Specialty Start Date End Date Umair Chowdhury MD [address] [address] PCP - General Internal Medicine 09/09/23
--- OUTSIDE RECORDS SUMMARY | 2025-02-07 10:42 | XMS_ITS | Encounter Summary ---
Author Organization [facility] Health Address [address] [place] [address] Care Team Providers Care Cake Maker Name Role Phone Unavailable Primary Care Provider Unavailabl e Prior Encounters Date Type Department Care Team Description 03/28/2019 Converted CPS Chart Documents [facility] [address], [place] [address] <No scans attached> 03/28/2019 Converted 13x Documents [facility] [address], [place] [address] <No scans attached> Plan of [...]
[2025-02-07] MEDS: CYCLOBENZAPRINE HCL 10 MG TABLET PO (11:09)
[2025-02-07] MEDS: ACETAMINOPHEN 500 MG TABLET 1000 MG PO (11:09)
--- OUTSIDE RECORDS SUMMARY | 2025-02-07 11:30 | XMS_ITS | Clinical Summary ---
Author Organization [facility] Care Team Providers Care Building Code Administrator Name Role Phone Unavailable Primary Care Provider Unavailabl e Social History Tobacco Use Types Packs/Day Years Used Date Smoking Tobacco: Never Assessed Sex and Gender Information Value Date Recorded Sex Assigned at Not on file Legal Sex Male 12:46 PM ANIMAL TECHNICIAN Gender Identity Not on file Sexual Orientation [...]
--- OUTSIDE RECORDS SUMMARY | 2025-02-07 11:30 | XMS_ITS | Clinical Summary ---
Author Organization [facility] Address [facility] [place] [address] Care Team Providers Care Lead Shop Operator Name Role Phone None, Provider MD Primary [...] Comments Blood Pressure 158/110 01/19/2019 8:27 AM REMEDIATION CONSULTANT Pulse 90 01/19/2019 8:27 AM REMEDIATION CONSULTANT Temperature 36.5 C (97.7 F) 01/19/2019 8:27 AM REMEDIATION CONSULTANT Respiratory Rate 18 01/19/2019 8:27 AM REMEDIATION CONSULTANT Oxygen Saturation 99% 01/19/2019 8:27 AM REMEDIATION CONSULTANT Inhaled Oxygen Concentration - - Weight 102.1 kg (225 lb) 01/19/2019 8:27 AM REMEDIATION CONSULTANT Height 195.6 cm (6' 5) 01/19/2019 8:27 AM REMEDIATION CONSULTANT Body Mass Index 26.68 01/19/2019 8:27 AM REMEDIATION CONSULTANT Plan of Treatment Health Maintenance Due Date [...] complete this topic Insurance [employer] Care Teams Lead Shop Operator Relationship Specialty Start Date End Date None, Provider, PCP - General 05/24/18
--- OUTSIDE RECORDS SUMMARY | 2025-02-07 11:30 | XMS_ITS | Clinical Summary ---
Author Organization [facility] Health Address [address] [place] [address] Care Team Providers Care President/Gm Production [employer] Live Experiences Name Role Phone Unavailable Primary Care Provider [...]
--- OUTSIDE RECORDS SUMMARY | 2025-02-07 11:30 | XMS_ITS | Clinical Summary ---
Author Organization [facility] Address [address] [place] [id number] Care Team Providers Care Warper Tender Name Role Phone Umair Chowdhury MD Primary Care Provider [phone] Allergies No known active allergies Medications traMADoL [...] on file Legal Sex Male 1:50 PM RISK INVESTIGATOR Gender Identity Male 02/29/2024 4:27 PM RISK INVESTIGATOR Sexual Orientation Straight 02/29/2024 4: 27 PM RISK INVESTIGATOR Last Filed Vital Signs Vital Sign Reading Time Taken Comments Blood Pressure 124/76 01/21/2023 1:48 PM RISK INVESTIGATOR Pulse 69 01/21/2023 1:48 PM RISK INVESTIGATOR Temperature 35.6 C (96.1 F) 04/12/2020 1:48 PM RISK INVESTIGATOR Respiratory Rate 18 04/12/2020 1:48 PM RISK INVESTIGATOR Oxygen Saturation 98% 04/12/2020 1:48 PM RISK INVESTIGATOR Inhaled Oxygen Concentration - - Weight 93.4 [...] 3, 12/27/2021, 11/19/2020, Additional history exists Insurance [facility] CIGNA [facility] Care Teams Warper Tender Relationship Specialty Start Date End Date Umair Chowdhury MD [address] [address] PCP - General Internal Medicine 09/09/23
--- OUTSIDE RECORDS SUMMARY | 2025-02-07 11:30 | XMS_ITS | Encounter Summary ---
Author Organization [facility] Address [address] [place] [address] Care Team Providers Care Gasket Former Name Role Phone Unavailable Primary Care Provider Unavailabl e Prior Encounters Date Type Department Care Team Description 03/28/2019 Converted CPS Chart Documents [facility] [address], [place] [address] <No scans attached> 03/28/2019 Converted 13x Documents [facility] [address], [place] [address] <No scans attached> Plan of [...]
== END 2025-02-07 11:27 | disposition home or self-care (01) ==
DX: S39.92XA Unspecified injury of lower back, initial encounter (principal); S19.9XXA Unspecified injury of neck, initial encounter; M54.16 Radiculopathy, lumbar region; M19.90 Unspecified osteoarthritis, unspecified site; F17.210 Nicotine dependence, cigarettes, uncomplicated; V49.9XXA Car occupant (driver) (passenger) injured in unspecified traffic accident, initial encounter
CPT/HCPCS: 70450; 72125; 72131; 73502; 99284; A9270